=== PATIENT | female | born 1975 | race Caucasian/White ===

== ENCOUNTER 2025-04-06 13:23 | Inpatient (IN) ==
--- NOTE | 2025-04-06 13:50 | Emergency Department Note ---
Impression & Plan Acute neck pain, Globus sensation, Acute hyperglycemia, Diabetes mellitus, new onset, Difficulty in swallowing ED Provider Note NAME: ADAMA SAM AGE: 50 SEX: F : 1975 ARRIVES VIA: Walk-In INFORMANT: Patient, ED PROVIDER(S): Philip Self DO CHIEF COMPLAINT: Difficulty breathing HPI: The patient is a 50-year-old female who does have a history of breast cancer in the past who presented to the emergency department for an evaluation of difficulty breathing. The patient describes a sensation where she is being choked almost. She describes it as difficulty getting a deep breath then but also like a tightness around her neck. The patient denies having any leg swelling or leg pain. She states that this has been ongoing for 2 weeks. Initially it was felt to be secondary to a yeast infection. She has been on medications for this but states that it is not helping. The patient denies having any abdominal pain. ROS: See above HPI for pertinent positives & negatives. A total of 10 systems reviewed and were otherwise negative. PAST MEDICAL HISTORY: See Below PAST SURGICAL HISTORY: See below FAMILY HISTORY: See Below SOCIAL HISTORY: See Below HOME MEDICATIONS: See Below ALLERGIES: See Below VITALS: See Below PHYSICAL EXAMINATION: GENERAL: Patient is awake alert in no acute distress patient is resting comfortably and showing no signs of anxiety EYES: The conjunctivae are clear. The pupils are round and reactive. EARS, NOSE, MOUTH AND THROAT: The nose is without any evidence of any deformity. Mucous membranes are moist. Tongue is midline. NECK: The neck is nontender and supple. RESPIRATORY: Normal respiratory effort is noted there is no evidence of wheezing rhonchi or rales CARDIOVASCULAR: Regular rate and rhythm noted there no murmurs rubs or gallops normal S1 normal S2. GASTROINTESTINAL: The abdomen is soft. Abdomen is nontender. MUSCULOSKELETAL/EXTREMITIES: There is no evidence of gross deformity full range of motion is noted in the hips and shoulders. SKIN: There is no obvious evidence of any rash. There are no petechiae, pallor or cyanosis noted. NEUROLOGIC: Patient is awake alert and oriented x3 MEDICAL DECISION MAKING: The patient is a 50-year-old female who presented to the emergency department with multiple complaints. The patient has been having problems with a sensation of tightness around her neck. I am not sure if this represents some sort of anginal equivalent but her EKG shows no acute ST segment abnormalities and her cardiac biomarker is negative despite having ongoing symptoms. The patient was found to have an elevated blood sugar. She claims to have no history of diabetes. The patient was recently on a course of steroids. She has also been experiencing yeast infection. I would think this represents the patient becoming a type II diabetic. She was treated with IV fluids and IV insulin in the emergency department. The patient was reevaluated multiple times. On reevaluation the patient was somewhat improved but still having significant anxiety about her symptoms. I am not sure if the patient would be a good candidate for outpatient management at this time. For this reason I will discuss her condition with the on-call [facility]. Triage Nursing notes reviewed. Prior medical records reviewed Vital Signs: reviewed and remarkable for no significant abnormalities Differential diagnosis: Viral syndrome, tonsillitis, streptococcal pharyngitis, mononucleosis, peritonsillar abscess, retropharyngeal abscess, otitis, pneumonia, influenza, as well as other pathologies. ER treatment provided: See below Diagnostics interpreted by me: ECG: EKG was obtained in the emergency department. My interpretation is normal sinus rhythm at 97 bpm. There is no ectopy. There is no acute ST segment abnormalities noted. QTc was 436 ms. Cardiac Monitoring: An order was placed for continuous cardiac monitoring. The monitor shows a rate of 98 bpm with sinus rhythm. Laboratory studies: As stated above and show below. Imaging studies: See below. Radiographic imaging was reviewed by myself Consultation(s): I discussed this case with Susan who is on for the [facility] group. Past Med/Surg History Problem List (Updated 04/06/25 @ 16:28 by Philip Self DO) Difficulty in swallowing (Acute) Diabetes mellitus, new onset (Acute) Acute hyperglycemia (Acute) Globus sensation (Acute) Acute neck pain (Acute) Medical History Liver disease Breast cancer Social History Smoking Status: Never smoker Feels Safe at Home: Yes Allergies Allergies Allergy/AdvReac Type Severity Reaction Status Date / Time adalimumab [From Humira] Allergy Severe swelling Unverified 04/06/25 16:20 of throat Home Meds Home Medications Medication Instructions Recorded Confirmed carvedilol 3.125 mg tablet 3.125 mg PO DAILY 04/06/25 04/06/25 ergocalciferol (vitamin D2) 1,250 50,000 unit PO WK 04/06/25 04/06/25 mcg (50,000 unit) capsule fluconazole 100 mg tablet 100 mg PO UD 04/06/25 04/06/25 furosemide 40 mg tablet 60 mg PO DAILY 04/06/25 04/06/25 ixekizumab 80 mg/mL subcutaneous 80 mg subcut MONTHLY 04/06/25 04/06/25 auto-injector (Taltz Autoinjector) omeprazole 20 mg capsule,delayed 20 mg PO BID 04/06/25 04/06/25 release spironolactone 100 mg tablet 200 mg PO DAILY 04/06/25 04/06/25 Results & Data (ED) Vital Signs Vital Signs - 24 hr 04/06/25 13:29 04/06/25 14:28 04/06/25 15:23 Temperature 36.5 C Temperature Source Temporal Artery Scan Pulse Rate 103 H Pulse Rate [Apical] 95 H Pulse Rate from SpO2 Sensor Respiratory Rate 16 14 Respiratory Effort / Characteristics Non-Labored Spontaneous Non-Labored Respiratory Depth Normal Normal Respiratory Pattern Regular Blood Pressure 135/89 Blood Pressure [Right Arm] 126/90 Blood Pressure Mean 104 Blood Pressure Mean [Right Arm] 102 Pulse Oximetry 97 99 Oxygen Delivery Method Room Air Room Air Room Air Sepsis Recent Fever Within 48 Hours No Sepsis New/Unexplained Change in Mental Status No Sepsis Action Taken by Nursing No Action Required 04/06/25 15:42 04/06/25 16:00 04/06/25 16:12 Temperature Temperature Source Pulse Rate 96 H 100 H Pulse Rate [Apical] Pulse Rate from SpO2 Sensor 101 H Respiratory Rate 17 Respiratory Effort / Characteristics Respiratory Depth Respiratory Pattern Blood Pressure 135/99 Blood Pressure [Right Arm] Blood Pressure Mean 108 Blood Pressure Mean [Right Arm] Pulse Oximetry 97 Oxygen Delivery Method Room Air Sepsis Recent Fever Within 48 Hours Sepsis New/Unexplained Change in Mental Status Sepsis Action Taken by Intermediate Medications Current Medication List: was personally reviewed by me Laboratory Data Attestation: I reviewed the patient's lab results. 04/06/25 14:00 04/06/25 14:00 Lab Results 04/06/25 04/06/25 04/06/25 Range/Units 13:44 14:00 14:09 WBC 8.78 (4.8-10.8) K/ul RBC 4.89 (4.20-5.40) M/uL Hgb 14.8 (12.0-16.0) g/dl POC Hgb 16.7 H (12.0-16.0) g/dl Hct 43.5 (37.0-47.0) % POC Hct 49 H (37-47) % MCV 89.0 (80.0-100.0) fL MCH 30.3 (25.0-34.0) pg MCHC 34.0 (32.0-36.0) g/dL RDW Std Deviation 45.1 (36.4-46.3) fL RDW Coeff of Hollis 14.0 (11.5-14.5) % Plt Count 176 (130-400) K/uL MPV 10.5 (9.4-12.4) fL Immature Gran % (Auto) 1.0 % Neut % (Auto) 69.6 % Lymph % (Auto) 17.2 % Howard % (Auto) 10.5 % Eos % (Auto) 0.9 % Baso % (Auto) 0.8 % Neut # (Auto) 6.11 (1.40-6.50) K/uL Lymph # (Auto) 1.51 (1.20-3.40) K/uL Howard # (Auto) 0.92 H (0.11-0.59) K/uL Eos # (Auto) 0.08 (0.00-0.50) K/uL Baso # (Auto) 0.07 (0.00-0.20) K/uL Immature Gran # (Auto) 0.09 (0.01-0.20) K/uL PT 11.5 (9.0-12.0) Seconds INR 1.1 (0.9-1.1) APTT 28 (21-31) Seconds PTT Ratio 1.0 VBG pH (7.36-7.41) VBG pCO2 (38-50) mmHg VBG pO2 mmHg VBG HCO3 mmol/L VBG O2 Saturation % VBG Base Excess mEq/L POC Sodium 123 L (135-144) mmol/L Sodium 123 L (136-145) mmol/L POC Potassium 5.1 H (3.3-5.0) mmol/L Potassium 4.9 (3.5-5.1) mmol/L POC Chloride 90 L (101-112) mmol/L Chloride 88 L (98-107) mmol/L Carbon Dioxide 24 (21-32) mmol/L POC Total CO2 23 L (24-31) mmol/L Anion Gap 11 (3-11) POC Anion Gap 17.0 (16-25) mmol/L POC BUN 20 H (7-18) mg/dl BUN 21 (6-23) mg/dl Creatinine 1.38 H (0.6-1.2) mg/dl POC Creatinine 1.4 H (0.6-1.3) mg/dl Est Cr Clr Drug Dosing 67.2 ml/min eGFR 46.06 BUN/Creatinine Ratio 15.2 (10-20) Glucose 572 H* (70-99(Fasting)) mg/dl POC Glucose (other) 553 H* (70-99) mg/dl Estimat Average Glucose 272 mg/dl Hemoglobin A1c 11.1 H (4.5-5.6) % Osmolality 293 (280-300) mOsm/kg Calcium 9.5 (8.6-10.3) mg/dl POC Ioniz Calcium Alma Delia 1.14 (1.12-1.32) mmol/l Magnesium 2.2 (1.7-2.4) mg/dl Total Bilirubin 2.0 H (0.2-1.0) mg/dl AST 32 (13-39) U/L ALT 37 (7-52) U/L Alkaline Phosphatase 166 H (34-104) U/L Troponin I High Sens 5.2 (0-14) pg/ml Total Protein 8.2 (6.0-8.3) gm/dl Albumin 4.6 (3.4-5.0) gm/dl Globulin 3.6 (2.5-4.0) gm/dl Albumin/Globulin Ratio 1.3 (0.9-2) TSH 1.683 (0.300-4.500) uIu/ml Urine Color Urine Appearance (Clear) Urine pH (4.5-7.5) Ur Specific [place] (1.000-1.030) Urine Protein (Negative) Urine Glucose (UA) (Negative) Urine Ketones (Negative) Urine Blood (Negative) Urine Nitrite (Negative) Urine Bilirubin (Negative) Urine Urobilinogen (Negative) Ur Leukocyte Esterase (Negative) Urine WBC (Auto) (0-5) /hpf Urine RBC (Auto) (0-2) /hpf U Hyaline Cast (Auto) (0-2) /lpf U Epithel Cells (Auto) (0-2) /hpf Urine Bacteria (Auto) (None Seen) Urine Osmolality (500-800) mOsm/kg Ur Random Sodium mmol/L Urine Comment SARS-CoV-2 (PCR) (Negative) Influenza Type A (PCR) (Neg) Influenza Type B (PCR) (Neg) RSV (RT-PCR) (Neg) 04/06/25 04/06/25 04/06/25 Range/Units 14:35 15:05 15:20 WBC (4.8-10.8) K/ul RBC (4.20-5.40) M/uL Hgb (12.0-16.0) g/dl POC Hgb (12.0-16.0) g/dl Hct (37.0-47.0) % POC Hct (37-47) % MCV (80.0-100.0) fL MCH (25.0-34.0) pg MCHC (32.0-36.0) g/dL RDW Std Deviation (36.4-46.3) fL RDW Coeff of Hollis (11.5-14.5) % Plt Count (130-400) K/uL MPV (9.4-12.4) fL Immature Gran % (Auto) % Neut % (Auto) % Lymph % (Auto) % Howard % (Auto) % Eos % (Auto) % Baso % (Auto) % Neut # (Auto) (1.40-6.50) K/uL Lymph # (Auto) (1.20-3.40) K/uL Howard # (Auto) (0.11-0.59) K/uL Eos # (Auto) (0.00-0.50) K/uL Baso # (Auto) (0.00-0.20) K/uL Immature Gran # (Auto) (0.01-0.20) K/uL PT (9.0-12.0) Seconds INR (0.9-1.1) APTT (21-31) Seconds PTT Ratio VBG pH 7.40 (7.36-7.41) VBG pCO2 46 (38-50) mmHg VBG pO2 40 mmHg VBG HCO3 29 mmol/L VBG O2 Saturation 61.9 % VBG Base Excess 3.0 mEq/L POC Sodium (135-144) mmol/L Sodium (136-145) mmol/L POC Potassium (3.3-5.0) mmol/L Potassium (3.5-5.1) mmol/L POC Chloride (101-112) mmol/L Chloride (98-107) mmol/L Carbon Dioxide (21-32) mmol/L POC Total CO2 (24-31) mmol/L Anion Gap (3-11) POC Anion Gap (16-25) mmol/L POC BUN (7-18) mg/dl BUN (6-23) mg/dl Creatinine (0.6-1.2) mg/dl POC Creatinine (0.6-1.3) mg/dl Est Cr Clr Drug Dosing ml/min eGFR BUN/Creatinine Ratio (10-20) Glucose (70-99(Fasting)) mg/dl POC Glucose (other) (70-99) mg/dl Estimat Average Glucose mg/dl Hemoglobin A1c (4.5-5.6) % Osmolality (280-300) mOsm/kg Calcium (8.6-10.3) mg/dl POC Ioniz Calcium Alma Delia (1.12-1.32) mmol/l Magnesium (1.7-2.4) mg/dl Total Bilirubin (0.2-1.0) mg/dl AST (13-39) U/L ALT (7-52) U/L Alkaline Phosphatase (34-104) U/L Troponin I High Sens (0-14) pg/ml Total Protein (6.0-8.3) gm/dl Albumin (3.4-5.0) gm/dl Globulin (2.5-4.0) gm/dl Albumin/Globulin Ratio (0.9-2) TSH (0.300-4.500) uIu/ml Urine Color Yellow Urine Appearance Clear (Clear) Urine pH 6.5 (4.5-7.5) Ur Specific [place] > 1.045 H (1.000-1.030) Urine Protein Negative (Negative) Urine Glucose (UA) 3+ H (Negative) Urine Ketones Negative (Negative) Urine Blood Trace H (Negative) Urine Nitrite Negative (Negative) Urine Bilirubin Negative (Negative) Urine Urobilinogen Negative (Negative) Ur Leukocyte Esterase Trace H (Negative) Urine WBC (Auto) 11-20 H (0-5) /hpf Urine RBC (Auto) 0-2 (0-2) /hpf U Hyaline Cast (Auto) 0-2 (0-2) /lpf U Epithel Cells (Auto) 3-5 H (0-2) /hpf Urine Bacteria (Auto) 1+ H (None Seen) Urine Osmolality 567 (500-800) mOsm/kg Ur Random Sodium 34 mmol/L Urine Comment SARS-CoV-2 (PCR) NEGATIVE (Negative) Influenza Type A (PCR) Negative (Neg) Influenza Type B (PCR) Negative (Neg) RSV (RT-PCR) Negative (Neg) Administered Medications Discontinued Medications Al Hydrox/Mg Hydrox/Simethicone (Aluminum/Magnesium Susp 30 Ml Udc) 30 ml PO NOW STA Stop: 04/06/25 13:45 Last Admin: 04/06/25 15:18 Dose: Not Given Documented By: ANUSHKA Sodium Chloride (Nss) 1,000 mls @ 999 mls/hr IV .Q1H1M ONE Stop: 04/06/25 15:14 Last Admin: 04/06/25 15:17 Dose: 999 mls/hr Documented By: ANUSHKA Insulin Human Regular (Novolin-R Insulin Per Unit Charge) 8 units IV NOW STA Stop: 04/06/25 15:19 Last Admin: 04/06/25 15:36 Dose: 8 units Documented By: MIRNA Co-signed By: nia Ioversol (Optiray 320 125ml) 112 ml IV ONCE ONE Stop: 04/06/25 14:23 Last Admin: 04/06/25 14:23 Dose: 112 ml Documented By: BIANCA Imaging Data Attestation: I personally reviewed and interpreted this imaging study as follows: My Impression: CT of the chest was obtained in the emergency department. My interpretation is no free air or definite infiltrate, final close low. Radiologist's Impression: Chest CTA 04/06/25 13:44 EXAM: CT Angiography Chest With Intravenous Contrast INDICATION: Lump in throat. Dyspnea. Vomiting. TECHNIQUE: Axial computed tomographic angiography images of the chest with intravenous contrast. Sagittal and coronal reformatted images were created and reviewed. This CT exam was performed using one or more of the following dose reduction techniques: automated exposure control, adjustment of the mA and/or kV according to patient size, and/or use of iterative reconstruction technique. MIP reconstructed images were created and reviewed. CONTRAST: 112 ml of Optiray 320 was administered intravenously. COMPARISON: No relevant prior studies available. FINDINGS: Pulmonary arteries: Pression no pulmonary embolus or aortic abnormality. Aorta: See above. Lungs and pleural spaces: No abnormality noted. No mass. No consolidation. No significant effusion. No pneumothorax. Heart: No abnormality noted. No cardiomegaly. No significant pericardial effusion. No evidence of RV dysfunction. Bones/joints: Degenerative changes noted throughout the spine. No acute osseous abnormality seen. Soft tissues: No abnormality noted. Lymph nodes: No abnormality noted. No enlarged lymph nodes. Liver: Visualized portion of the liver is cirrhotic. The spleen is probably enlarged but not completely imaged. The pancreas is not assessed. IMPRESSION: 1. No pulmonary embolus or pulmonary infiltrate. 2. Cirrhosis and probable splenomegaly. The pancreas is not evaluated and may be seen partially related to volume averaging on the lowermost image. ACT 112: N/A Electronically signed by Nevaeh Aponte 04-06-2025 2:51 PM [address] Tissue Neck [address] 04/06/25 13:44 EXAM: CT Neck With Intravenous Contrast INDICATION: Lump in throat. Vomiting. TECHNIQUE: Axial computed tomography images of the neck with intravenous contrast. Sagittal and coronal reformatted images were created and reviewed. This CT exam was performed using one or more of the following dose reduction techniques: automated exposure control, adjustment of the mA and/or kV according to patient size, and/or use of iterative reconstruction technique. CONTRAST: 112 ml of Optiray 320 was administered intravenously. COMPARISON: No relevant prior studies available. FINDINGS: Oropharynx: No abnormality noted. No significant tonsillar enlargement. No peritonsillar abscess. Hypopharynx: No abnormality noted. Larynx: No abnormality noted. Normal epiglottis. Trachea: No abnormality noted. Retropharyngeal space: No abnormality noted. Submandibular/parotid glands: No abnormality noted. Glands are normal in size. Thyroid: No abnormality noted. Bones/joints: No acute changes. Soft tissues: No significant abnormality noted. Vasculature: No acute abnormality noted. Lymph nodes: No abnormality noted. No lymphadenopathy. Sinuses: Minimal chronic mucosal thickening floor of the right maxillary sinus. Lung apices: No significant abnormality noted. IMPRESSION: No acute findings in the neck. ACT 112: N/A Electronically signed by Nevaeh Aponte 04-06-2025 3:15 PM Discharge Plan Visit Data Chief Complaint: Shortness of Breath/Dyspnea Stated Complaint: VOMITING, THROAT RESTRICTION, SOB ED Provider: Philip Self Discharge Problem: Acute neck pain, Globus sensation, Acute hyperglycemia, Diabetes mellitus, new onset, Difficulty in swallowing Patient Disposition: Being Evaluated by Hospitalist Condition: Fair Forms Stand Alone Forms: My [facility] Prescriptions Prescriptions: No Action furosemide 40 mg tablet 60 mg PO DAILY fluconazole 100 mg tablet 100 mg PO UD spironolactone 100 mg tablet 200 mg PO DAILY carvedilol 3.125 mg tablet 3.125 mg PO DAILY omeprazole 20 mg capsule,delayed release(DR/EC) 20 mg PO BID ergocalciferol (vitamin D2) 1,250 mcg (50,000 unit) capsule 50,000 unit PO WK Taltz Autoinjector 80 mg/mL auto-injector 80 mg SUBCUT MONTHLY Referrals Referrals: PCP,NO [Primary Care Provider] -
[2025-04-06 14:21] LABS: Hematocrit (blood only) 43.5 % (37.0-47.0); Hemoglobin 14.8 g/dl (12.0-16.0); Immature Granulocytes # (auto) 0.09 K/uL (0.01-0.20); Immature Granulocytes % (auto) 1.0 %; Mean Corpuscular Hemoglobin 30.3 pg (25.0-34.0); Mean Corpuscular Volume 89.0 fL (80.0-100.0); Platelet Count 176 K/uL (130-400); RDW Standard Deviation 45.1 fL (36.4-46.3); Red Blood Count 4.89 M/uL (4.20-5.40); White Blood Count 8.78 K/ul (4.8-10.8)
[2025-04-06] MEDS: OPTIRAY 320 125ml IV ONE (14:23)
[2025-04-06 14:49] LABS: Alanine Aminotransferase 37.0 U/L (7-52); Albumin Globulin Ratio 1.3 (0.9-2); Albumin Level 4.6 gm/dl (3.4-5.0); Alkaline Phosphatase 166.0 U/L (34-104); Anion Gap 11.0 (3-11); Bilirubin,Total 2.0 mg/dl (0.2-1.0); Blood Urea Nitrogen 21.0 mg/dl (6-23); Calcium 9.5 mg/dl (8.6-10.3); Carbon Dioxide 24.0 mmol/L (21-32); Chloride 88.0 mmol/L (98-107); Creatinine Clr Calc Pharmacy 67.2 ml/min; Globulin 3.6 gm/dl (2.5-4.0); Glucose 572.0 mg/dl (70-99(Fasting)); Magnesium 2.2 mg/dl (1.7-2.4); Potassium 4.9 mmol/L (3.5-5.1); Sodium 123.0 mmol/L (136-145); Total Protein 8.2 gm/dl (6.0-8.3)
--- NOTE | 2025-04-06 14:52 | CT Scan Report ---
EXAM: CT Angiography Chest With Intravenous Contrast INDICATION: Lump in throat. Dyspnea. Vomiting. TECHNIQUE: Axial computed tomographic angiography images of the chest with intravenous contrast. Sagittal and coronal reformatted images were created and reviewed. This CT exam was performed using one or more of the following dose reduction techniques: automated exposure control, adjustment of the mA and/or kV according to patient size, and/or use of iterative reconstruction technique. MIP reconstructed images were created and reviewed. CONTRAST: 112 ml of Optiray 320 was administered intravenously. COMPARISON: No relevant prior studies available. FINDINGS: Pulmonary arteries: Pression no pulmonary embolus or aortic abnormality. Aorta: See above. Lungs and pleural spaces: No abnormality noted. No mass. No consolidation. No significant effusion. No pneumothorax. Heart: No abnormality noted. No cardiomegaly. No significant pericardial effusion. No evidence of RV dysfunction. Bones/joints: Degenerative changes noted throughout the spine. No acute osseous abnormality seen. Soft tissues: No abnormality noted. Lymph nodes: No abnormality noted. No enlarged lymph nodes. Liver: Visualized portion of the liver is cirrhotic. The spleen is probably enlarged but not completely imaged. The pancreas is not assessed. IMPRESSION: 1. No pulmonary embolus or pulmonary infiltrate. 2. Cirrhosis and probable splenomegaly. The pancreas is not evaluated and may be seen partially related to volume averaging on the lowermost image. ACT 112: N/A Electronically signed by Nevaeh Aponte 04-06-2025 2:51 PM
[2025-04-06 15:00] LABS: Thyroid Stimulating Hormone 1.683 uIu/ml (0.300-4.500)
[2025-04-06 15:10] LABS: Base Excess VBG 3.0 mEq/L; HCO3 VBG 29 mmol/L; Oxygen Saturation VBG 61.9 %; PCO2 VBG 46 mmHg (38-50); PO2 VBG 40 mmHg; pH VBG 7.40 (7.36-7.41)
--- NOTE | 2025-04-06 15:15 | CT Scan Report ---
EXAM: CT Neck With Intravenous Contrast INDICATION: Lump in throat. Vomiting. TECHNIQUE: Axial computed tomography images of the neck with intravenous contrast. Sagittal and coronal reformatted images were created and reviewed. This CT exam was performed using one or more of the following dose reduction techniques: automated exposure control, adjustment of the mA and/or kV according to patient size, and/or use of iterative reconstruction technique. CONTRAST: 112 ml of Optiray 320 was administered intravenously. COMPARISON: No relevant prior studies available. FINDINGS: Oropharynx: No abnormality noted. No significant tonsillar enlargement. No peritonsillar abscess. Hypopharynx: No abnormality noted. Larynx: No abnormality noted. Normal epiglottis. Trachea: No abnormality noted. Retropharyngeal space: No abnormality noted. Submandibular/parotid glands: No abnormality noted. Glands are normal in size. Thyroid: No abnormality noted. Bones/joints: No acute changes. Soft tissues: No significant abnormality noted. Vasculature: No acute abnormality noted. Lymph nodes: No abnormality noted. No lymphadenopathy. Sinuses: Minimal chronic mucosal thickening floor of the right maxillary sinus. Lung apices: No significant abnormality noted. IMPRESSION: No acute findings in the neck. ACT 112: N/A Electronically signed by Nevaeh Aponte 04-06-2025 3:15 PM
[2025-04-06] MEDS: SODIUM CHLORIDE 0.9% 1,000 ML IV ONE (15:17)
[2025-04-06] MEDS: ALUMINUM/MAGNESIUM SUSP 30 ML UDC PO STA (15:18)
[2025-04-06 15:20] LABS: Influenza A virus by PCR Negative (Neg); Influenza B virus by PCR Negative (Neg); SARS CoV2 RNA(COVID-19) Ceph NEGATIVE (Negative)
[2025-04-06 15:31] LABS: INR 1.1 (0.9-1.1); Partial Thromboplastin Time 28 Seconds (21-31); Prothrombin Time 11.5 Seconds (9.0-12.0)
[2025-04-06] MEDS: NovoLIN-R INSULIN PER UNIT CHARGE IV STA (15:36)
[2025-04-06 15:41] LABS: Appearance Urine Clear (Clear); Bacteria Urine Automated 1+ (None Seen); Cast Urine Automated 0-2 /lpf (0-2); Glucose Urine UA 3+ (Negative); RBC Urine Automated 0-2 /hpf (0-2)
[2025-04-06 15:57] LABS: Hemoglobin A1C 11.1 % (4.5-5.6)
--- NOTE | 2025-04-06 16:56 | History & Physical Report ---
Date of Service April 06, 2025 Assessment & Plan (1) Diabetes mellitus, new onset: (2) Choking sensation: (3) Obstructive sleep apnea: (4) Rheumatoid arthritis: (5) Cirrhosis: Plan This is a 50 y/o female with cirrhosis with known esophageal varices, prior breast cancer, IRMA, rheumatoid arthritis, psoriatic arthritis, and empty sella syndrome who presents to the ED today with two weeks of a choking sensation. She was started on empiric fluconazole for possible latoya esophagitis yesterday. Work-up in the ED included CT of the chest and neck, which did not show any mechanical obstruction. Labs in the ED were significant for a glucose of 572, A1c of 11.1, sodium of 123 (corrected due to hyperglycemia - 131), creatinine 1.38 (unknown baseline). VBG was normal with pH 7.40, pCO2 46, pO2 40. INR normal at 1.1. Platelets were 176. Total bilirubin slightly elevated at 2.0, alk phos elevated at 166, AST and ALT were normal at 32 and 37. Pt was referred for admission due to newly diagnosed diabetes, persistent choking sensation without clear etiology. Pt will be admitted to [facility] for further evaluation and management. #New diagnosis of diabetes - A1c 11.1 - BSG ACHS, diabetic diet - Start insulin - Lantus 10 units HS, sliding scale - Consult clinical systems educator #Choking sensation Unclear etiology at present but Latoya esophagitis is possible, especially in view of recent prednisone and underlying undiagnosed diabetes with marked hyperglycemia. Imaging negative for mechanical obstruction on CT. - Consult ENT for possible direct laryngoscopy - Consult GI for additional recommendations - ?need for EGD - Continue empiric fluconazole for possible Latoya esophagitis - Repeat troponin in six hours to establish trend though cardiac etiology thought less likely based on duration of symptoms, initial troponin normal, no acute EKG changes - ECHO #Cirrhosis - Chronic, follows with hepatology in [place] - Continue furosemide/spironolactone - Continue carvedilol recently started for varices #GERD - Continue BID PPI therapy Of note, pt expressed in triage in the ED that she wanted to go to sleep and not wake up because of how poorly she has been feeling. When asked about these statements, she denies being suicidal or having a plan. She reports that she was just frustrated with her health and how she has been feeling. She denies current depression or history of MDD. Will consult behavioral health liason per protocol but pt adamant at present that she is not suicidal. Pt seen and reviewed with collaborating physician Dr. Bustillo. Plan of care discussed and as outlined above. Pt's was at the bedside for the entire visit. All of his and the patient's questions were answerd. Code status: full code DVT prophylaxis: subQ heparin I spent a total of 78 minutes coordinating, documenting, and providing care for this patient excluding time spent in the performance of separately billed services or time spent by another provider/QHP. Juancarlos Campbell PA-C History of Present Illness Chief Complaint: choking sensation Primary Care Provider: NO PCP This is a 50 y/o female with cirrhosis with known esophageal varices, prior breast cancer, IRMA, rheumatoid arthritis, psoriatic arthritis, and empty sella syndrome who presents to the ED today with two weeks of a choking sensation. She describes this like "someone's hand on my neck" and notes an associated metallic taste in her mouth. She denies significant dysphagia or odynophagia and reports that she has been able to eat without difficulty. She has been spitting up saliva and mucus during this same time because she feels like it's making her nauseated but again denies difficulty with swallowing her saliva. She also noted several days of vaginal irritation that she describes as "felt raw, burning sensation" but no unusual vaginal discharge. She called her PCP who prescribed her fluconazole 200 mg daily starting yesterday due to concern for potential vaginal and esophageal candidiasis based on her symptoms. She took three 100 mg pills of fluconazole yesterday to try to "catch up" but notes that this caused nausea so didn't take today. Her vaginal irritation has already improved but hasn't noted any change in the choking sensation. She has noted chills and night sweats, has not checked her temperature, but notes she is menopausal. Her bowel pattern is alternating diarrhea and constipation - was supposed to get a scope in June but told to avoid sedation if possible so hasn't had this. She denies melena or hematochezia. She denies changes in urination - no dysuria, hematuria. She notes taking prednisone for several days earlier this month for a back injury, finishing about 2-3 weeks ago. She has a history of cirrhosis with recently diagnosed esophageal varices, which is why she was started on Coreg. She follows with a rug repairer in [place]. She notes recurrent pleural effusions as well, requiring five thoracentesis procedures in the past, that have also been attributed to the cirrhosis. Her home health travel ot is also in [place]. She denies hx of prior AR, stroke. Denies prior diagnosis of DM. She has a known sleep apnea but had trouble tolerating the CPAP (can't tolerate the mask). Allergies Allergy/AdvReac Type Severity Reaction Status Date / Time adalimumab [From Humira] Allergy Severe swelling Unverified 04/06/25 16:20 of throat Home Medications Medication Instructions Recorded Confirmed Type carvedilol 3.125 mg tablet 3.125 mg PO DAILY 04/06/25 04/06/25 History ergocalciferol (vitamin D2) 1,250 50,000 unit PO WK 04/06/25 04/06/25 History mcg (50,000 unit) capsule fluconazole 100 mg tablet 100 mg PO UD 04/06/25 04/06/25 History furosemide 40 mg tablet 60 mg PO DAILY 04/06/25 04/06/25 History ixekizumab 80 mg/mL subcutaneous 80 mg subcut MONTHLY 04/06/25 04/06/25 History auto-injector (Taltz Autoinjector) omeprazole 20 mg capsule,delayed 20 mg PO BID 04/06/25 04/06/25 History release spironolactone 100 mg tablet 200 mg PO DAILY 04/06/25 04/06/25 History Past Med/Surg History Problem List (Updated 04/06/25 @ 20:23 by Winifred Campbell PA-C) Choking sensation Difficulty in swallowing (Acute) Diabetes mellitus, new onset (Acute) Acute hyperglycemia (Acute) Globus sensation (Acute) Acute neck pain (Acute) Medical History (Updated 04/06/25 @ 20:23 by Winifred Campbell PA-C) Cirrhosis Obstructive sleep apnea Recurrent pleural effusion Psoriatic arthritis Rheumatoid arthritis Acid reflux Liver disease Breast cancer chemo, XRT No longer on tamoxifen Surgical History (Updated 04/06/25 @ 17:25 by Winifred Campbell PA-C) S/P thoracentesis History of hernia repair S/P cholecystectomy Hx of breast surgery History of dilatation and curettage x2 Family History (Updated 04/06/25 @ 17:24 by Winifred Campbell PA-C) Grandmother Diabetes Denies family history of Liver disease Social History (Updated 04/06/25 @ 17:23 by Winifred Campbell PA-C) Smoking Status: Never smoker Hx Alcohol Use: No marital status: Current Living Situation: Spouse Feels Safe at Home: Yes Review of Systems Review of Systems: All systems reviewed & are unremarkable except as noted in Subjective Physical Exam Physical Exam: Please see physician note for details of the physical exam. Results & Data Results & Data Vital Signs (Past 12 Hours) Vital Signs Temp Pulse Pulse Resp BP BP Pulse Ox 04/06/25 16:39 98 H 23 98 04/06/25 16:30 152/111 H 04/06/25 16:12 100 H 17 97 04/06/25 16:00 135/99 04/06/25 15:42 96 H 04/06/25 15:23 95 H 14 126/90 99 04/06/25 14:28 04/06/25 13:29 36.5 C 103 H 16 135/89 97 O2 Del Method 04/06/25 16:39 Room Air 04/06/25 16:30 04/06/25 16:12 Room Air 04/06/25 16:00 04/06/25 15:42 04/06/25 15:23 Room Air 04/06/25 14:28 Room Air 04/06/25 13:29 Room Air Laboratory Results Lab Results 04/06/25 04/06/25 04/06/25 Range/Units 13:44 14:00 14:09 WBC 8.78 (4.8-10.8) K/ul RBC 4.89 (4.20-5.40) M/uL Hgb 14.8 (12.0-16.0) g/dl POC Hgb 16.7 H (12.0-16.0) g/dl Hct 43.5 (37.0-47.0) % POC Hct 49 H (37-47) % MCV 89.0 (80.0-100.0) fL MCH 30.3 (25.0-34.0) pg MCHC 34.0 (32.0-36.0) g/dL RDW Std Deviation 45.1 (36.4-46.3) fL RDW Coeff of Hollis 14.0 (11.5-14.5) % Plt Count 176 (130-400) K/uL MPV 10.5 (9.4-12.4) fL Immature Gran % (Auto) 1.0 % Neut % (Auto) 69.6 % Lymph % (Auto) 17.2 % Faulkner % (Auto) 10.5 % Eos % (Auto) 0.9 % Baso % (Auto) 0.8 % Neut # (Auto) 6.11 (1.40-6.50) K/uL Lymph # (Auto) 1.51 (1.20-3.40) K/uL Faulkner # (Auto) 0.92 H (0.11-0.59) K/uL Eos # (Auto) 0.08 (0.00-0.50) K/uL Baso # (Auto) 0.07 (0.00-0.20) K/uL Immature Gran # (Auto) 0.09 (0.01-0.20) K/uL PT 11.5 (9.0-12.0) Seconds INR 1.1 (0.9-1.1) APTT 28 (21-31) Seconds PTT Ratio 1.0 VBG pH (7.36-7.41) VBG pCO2 (38-50) mmHg VBG pO2 mmHg VBG HCO3 mmol/L VBG O2 Saturation % VBG Base Excess mEq/L POC Sodium 123 L (135-144) mmol/L Sodium 123 L (136-145) mmol/L POC Potassium 5.1 H (3.3-5.0) mmol/L Potassium 4.9 (3.5-5.1) mmol/L POC Chloride 90 L (101-112) mmol/L Chloride 88 L (98-107) mmol/L Carbon Dioxide 24 (21-32) mmol/L POC Total CO2 23 L (24-31) mmol/L Anion Gap 11 (3-11) POC Anion Gap 17.0 (16-25) mmol/L POC BUN 20 H (7-18) mg/dl BUN 21 (6-23) mg/dl Creatinine 1.38 H (0.6-1.2) mg/dl POC Creatinine 1.4 H (0.6-1.3) mg/dl Est Cr Clr Drug Dosing 67.2 ml/min eGFR 46.06 BUN/Creatinine Ratio 15.2 (10-20) Glucose 572 H* (70-99(Fasting)) mg/dl POC Glucose (70-99) mg/dl POC Glucose (other) 553 H* (70-99) mg/dl Estimat Average Glucose 272 mg/dl Hemoglobin A1c 11.1 H (4.5-5.6) % Osmolality 293 (280-300) mOsm/kg Calcium 9.5 (8.6-10.3) mg/dl POC Ioniz Calcium Alma Delia 1.14 (1.12-1.32) mmol/l Magnesium 2.2 (1.7-2.4) mg/dl Total Bilirubin 2.0 H (0.2-1.0) mg/dl AST 32 (13-39) U/L ALT 37 (7-52) U/L Alkaline Phosphatase 166 H (34-104) U/L Troponin I High Sens 5.2 (0-14) pg/ml Total Protein 8.2 (6.0-8.3) gm/dl Albumin 4.6 (3.4-5.0) gm/dl Globulin 3.6 (2.5-4.0) gm/dl Albumin/Globulin Ratio 1.3 (0.9-2) TSH 1.683 (0.300-4.500) uIu/ml Urine Color Urine Appearance (Clear) Urine pH (4.5-7.5) Ur Specific [place] (1.000-1.030) Urine Protein (Negative) Urine Glucose (UA) (Negative) Urine Ketones (Negative) Urine Blood (Negative) Urine Nitrite (Negative) Urine Bilirubin (Negative) Urine Urobilinogen (Negative) Ur Leukocyte Esterase (Negative) Urine WBC (Auto) (0-5) /hpf Urine RBC (Auto) (0-2) /hpf U Hyaline Cast (Auto) (0-2) /lpf U Epithel Cells (Auto) (0-2) /hpf Urine Bacteria (Auto) (None Seen) Urine Osmolality (500-800) mOsm/kg Ur Random Sodium mmol/L Urine Comment SARS-CoV-2 (PCR) (Negative) Influenza Type A (PCR) (Neg) Influenza Type B (PCR) (Neg) RSV (RT-PCR) (Neg) 04/06/25 04/06/25 04/06/25 Range/Units 14:35 15:05 15:20 WBC (4.8-10.8) K/ul RBC (4.20-5.40) M/uL Hgb (12.0-16.0) g/dl POC Hgb (12.0-16.0) g/dl Hct (37.0-47.0) % POC Hct (37-47) % MCV (80.0-100.0) fL MCH (25.0-34.0) pg MCHC (32.0-36.0) g/dL RDW Std Deviation (36.4-46.3) fL RDW Coeff of Hollis (11.5-14.5) % Plt Count (130-400) K/uL MPV (9.4-12.4) fL Immature Gran % (Auto) % Neut % (Auto) % Lymph % (Auto) % Faulkner % (Auto) % Eos % (Auto) % Baso % (Auto) % Neut # (Auto) (1.40-6.50) K/uL Lymph # (Auto) (1.20-3.40) K/uL Fa[place]ner # (Auto) (0.11-0.59) K/uL Eos # (Auto) (0.00-0.50) K/uL Baso # (Auto) (0.00-0.20) K/uL Immature Gran # (Auto) (0.01-0.20) K/uL PT (9.0-12.0) Seconds INR (0.9-1.1) APTT (21-31) Seconds PTT Ratio VBG pH 7.40 (7.36-7.41) VBG pCO2 46 (38-50) mmHg VBG pO2 40 mmHg VBG HCO3 29 mmol/L VBG O2 Saturation 61.9 % VBG Base Excess 3.0 mEq/L POC Sodium (135-144) mmol/L Sodium (136-145) mmol/L POC Potassium (3.3-5.0) mmol/L Potassium (3.5-5.1) mmol/L POC Chloride (101-112) mmol/L Chloride (98-107) mmol/L Carbon Dioxide (21-32) mmol/L POC Total CO2 (24-31) mmol/L Anion Gap (3-11) POC Anion Gap (16-25) mmol/L POC BUN (7-18) mg/dl BUN (6-23) mg/dl Creatinine (0.6-1.2) mg/dl POC Creatinine (0.6-1.3) mg/dl Est Cr Clr Drug Dosing ml/min eGFR BUN/Creatinine Ratio (10-20) Glucose (70-99(Fasting)) mg/dl POC Glucose (70-99) mg/dl POC Glucose (other) (70-99) mg/dl Estimat Average Glucose mg/dl Hemoglobin A1c (4.5-5.6) % Osmolality (280-300) mOsm/kg Calcium (8.6-10.3) mg/dl POC Ioniz Calcium [place] Delia (1.12-1.32) mmol/l Magnesium (1.7-2.4) mg/dl Total Bilirubin (0.2-1.0) mg/dl AST (13-39) U/L ALT (7-52) U/L Alkaline Phosphatase (34-104) U/L Troponin I High Sens (0-14) pg/ml Total Protein (6.0-8.3) gm/dl Albumin (3.4-5.0) gm/dl Globulin (2.5-4.0) gm/dl Albumin/Globulin Ratio (0.9-2) TSH (0.300-4.500) uIu/ml Urine Color Yellow Urine Appearance Clear (Clear) Urine pH 6.5 (4.5-7.5) Ur Specific [place] > 1.045 H (1.000-1.030) Urine Protein Negative (Negative) Urine Glucose (UA) 3+ H (Negative) Urine Ketones Negative (Negative) Urine Blood Trace H (Negative) Urine Nitrite Negative (Negative) Urine Bilirubin Negative (Negative) Urine Urobilinogen Negative (Negative) Ur Leukocyte Esterase Trace H (Negative) Urine WBC (Auto) 11-20 H (0-5) /hpf Urine RBC (Auto) 0-2 (0-2) /hpf U Hyaline Cast (Auto) 0-2 (0-2) /lpf U Epithel Cells (Auto) 3-5 H (0-2) /hpf Urine Bacteria (Auto) 1+ H (None Seen) Urine Osmolality 567 (500-800) mOsm/kg Ur Random Sodium 34 mmol/L Urine Comment SARS-CoV-2 (PCR) NEGATIVE (Negative) Influenza Type A (PCR) Negative (Neg) Influenza Type B (PCR) Negative (Neg) RSV (RT-PCR) Negative (Neg) 04/06/25 Range/Units 16:36 WBC (4.8-10.8) K/ul RBC (4.20-5.40) M/uL Hgb (12.0-16.0) g/dl POC Hgb (12.0-16.0) g/dl Hct (37.0-47.0) % POC Hct (37-47) % MCV (80.0-100.0) fL MCH (25.0-34.0) pg MCHC (32.0-36.0) g/dL RDW Std Deviation (36.4-46.3) fL RDW Coeff of Hollis (11.5-14.5) % Plt Count (130-400) K/uL MPV (9.4-12.4) fL Immature Gran % (Auto) % Neut % (Auto) % Lymph % (Auto) % [place] % (Auto) % Eos % (Auto) % Baso % (Auto) % Neut # (Auto) (1.40-6.50) K/uL Lymph # (Auto) (1.20-3.40) K/uL [place] # (Auto) (0.11-0.59) K/uL Eos # (Auto) (0.00-0.50) K/uL Baso # (Auto) (0.00-0.20) K/uL Immature Gran # (Auto) (0.01-0.20) K/uL PT (9.0-12.0) Seconds INR (0.9-1.1) APTT (21-31) Seconds PTT Ratio VBG pH (7.36-7.41) VBG pCO2 (38-50) mmHg VBG pO2 mmHg VBG HCO3 mmol/L VBG O2 Saturation % VBG Base Excess mEq/L POC Sodium (135-144) mmol/L Sodium (136-145) mmol/L POC Potassium (3.3-5.0) mmol/L Potassium (3.5-5.1) mmol/L POC Chloride (101-112) mmol/L Chloride (98-107) mmol/L Carbon Dioxide (21-32) mmol/L POC Total CO2 (24-31) mmol/L Anion Gap (3-11) POC Anion Gap (16-25) mmol/L POC BUN (7-18) mg/dl BUN (6-23) mg/dl Creatinine (0.6-1.2) mg/dl POC Creatinine (0.6-1.3) mg/dl Est Cr Clr Drug Dosing ml/min eGFR BUN/Creatinine Ratio (10-20) Glucose (70-99(Fasting)) mg/dl POC Glucose 423 H* (70-99) mg/dl POC Glucose (other) (70-99) mg/dl Estimat Average Glucose mg/dl Hemoglobin A1c (4.5-5.6) % Osmolality (280-300) mOsm/kg Calcium (8.6-10.3) mg/dl POC Ioniz Calcium [place] Del[place] (1.12-1.32) mmol/l Magnesium (1.7-2.4) mg/dl Total Bilirubin (0.2-1.0) mg/dl AST (13-39) U/L ALT (7-52) U/L Alkaline Phosphatase (34-104) U/L Troponin I High Sens (0-14) pg/ml Total Protein (6.0-8.3) gm/dl Albumin (3.4-5.0) gm/dl Globulin (2.5-4.0) gm/dl Albumin/Globulin Ratio (0.9-2) TSH (0.300-4.500) uIu/ml Urine Color Urine Appearance (Clear) Urine pH (4.5-7.5) Ur Specific [place] (1.000-1.030) Urine Protein (Negative) Urine Glucose (UA) (Negative) Urine Ketones (Negative) Urine Blood (Negative) Urine Nitrite (Negative) Urine Bilirubin (Negative) Urine Urobilinogen (Negative) Ur Leukocyte Esterase (Negative) Urine WBC (Auto) (0-5) /hpf Urine RBC (Auto) (0-2) /hpf U Hyaline Cast (Auto) (0-2) /lpf U Epithel Cells (Auto) (0-2) /hpf Urine Bacteria (Auto) (None Seen) Urine Osmolality (500-800) mOsm/kg Ur Random Sodium mmol/L Urine Comment SARS-CoV-2 (PCR) (Negative) Influenza Type A (PCR) (Neg) Influenza Type B (PCR) (Neg) RSV (RT-PCR) (Neg) Diagnostic Findings Chest CTA 04/06/25 13:44 EXAM: CT Angiography Chest With Intravenous Contrast INDICATION: Lump in throat. Dyspnea. Vomiting. TECHNIQUE: Axial computed tomographic angiography images of the chest with intravenous contrast. Sagittal and coronal reformatted images were created and reviewed. This CT exam was performed using one or more of the following dose reduction techniques: automated exposure control, adjustment of the mA and/or kV according to patient size, and/or use of iterative reconstruction technique. MIP reconstructed images were created and reviewed. CONTRAST: 112 ml of Optiray 320 was administered intravenously. COMPARISON: No relevant prior studies available. FINDINGS: Pulmonary arteries: Pression no pulmonary embolus or aortic abnormality. Aorta: See above. Lungs and pleural spaces: No abnormality noted. No mass. No consolidation. No significant effusion. No pneumothorax. Heart: No abnormality noted. No cardiomegaly. No significant pericardial effusion. No evidence of RV dysfunction. Bones/joints: Degenerative changes noted throughout the spine. No acute osseous abnormality seen. Soft tissues: No abnormality noted. Lymph nodes: No abnormality noted. No enlarged lymph nodes. Liver: Visualized portion of the liver is cirrhotic. The spleen is probably enlarged but not completely imaged. The pancreas is not assessed. IMPRESSION: 1. No pulmonary embolus or pulmonary infiltrate. 2. Cirrhosis and probable splenomegaly. The pancreas is not evaluated and may be seen partially related to volume averaging on the lowermost image. ACT 112: N/A Electronically signed by Nevaeh Aponte 04-06-2025 2:51 PM Soft Tissue Neck CT 04/06/25 13:44 EXAM: CT Neck With Intravenous Contrast INDICATION: Lump in throat. Vomiting. TECHNIQUE: Axial computed tomography images of the neck with intravenous contrast. Sagittal and coronal reformatted images were created and reviewed. This CT exam was performed using one or more of the following dose reduction techniques: automated exposure control, adjustment of the mA and/or kV according to patient size, and/or use of iterative reconstruction technique. CONTRAST: 112 ml of Optiray 320 was administered intravenously. COMPARISON: No relevant prior studies available. FINDINGS: Oropharynx: No abnormality noted. No significant tonsillar enlargement. No peritonsillar abscess. Hypopharynx: No abnormality noted. Larynx: No abnormality noted. Normal epiglottis. Trachea: No abnormality noted. Retropharyngeal space: No abnormality noted. Submandibular/parotid glands: No abnormality noted. Glands are normal in size. Thyroid: No abnormality noted. Bones/joints: No acute changes. Soft tissues: No significant abnormality noted. Vasculature: No acute abnormality noted. Lymph nodes: No abnormality noted. No lymphadenopathy. Sinuses: Minimal chronic mucosal thickening floor of the right maxillary sinus. Lung apices: No significant abnormality noted. IMPRESSION: No acute findings in the neck. ACT 112: N/A Electronically signed by Nevaeh Aponte 04-06-2025 3:15 PM Medications Administered Discontinued Medications Al Hydrox/Mg Hydrox/Simethicone (Aluminum/Magnesium Susp 30 Ml Udc) 30 ml PO NOW STA Stop: 04/06/25 13:45 Last Admin: 04/06/25 15:18 Dose: Not Given Documented By: ANUSHKA Sodium Chloride (Nss) 1,000 mls @ 999 mls/hr IV .Q1H1M ONE Stop: 04/06/25 15:14 Last Admin: 04/06/25 15:17 Dose: 999 mls/hr Documented By: ANUSHKA Insulin Human Regular (Novolin-R Insulin Per Unit Charge) 8 units IV NOW STA Stop: 04/06/25 15:19 Last Admin: 04/06/25 15:36 Dose: 8 units Documented By: MIRNA Co-signed By: nia Ioversol (Optiray 320 125ml) 112 ml IV ONCE ONE Stop: 04/06/25 14:23 Last Admin: 04/06/25 14:23 Dose: 112 ml Documented By: BIANCA Supervising Physician Co-Signing Physician Notes Presents with choking sensation in throat for the past 2 weeks. Denied dysphagia or odynophagia Reports she had vaginal itching/discharge and was started on fluconazole yesterday for that as well as choking sensation. Vaginal symptoms are resolved Recently completed oral prednisone which she took for about 12 days Reports h/o cirrhosis On exam, General: Obese woman Eyes: PERRL, conjunctivae normal, not pale, anicteric sclerae, EOM intact bilaterally ENMT: External ear and nose normal, No erythema or plaques noted in part of oropharynx visualized Neck: Normal visual inspection, no tracheal deviation, no swelling/tenderness noted Respiratory: Normal respiratory effort, no respiratory distress, lungs clear to auscultation Cardiovascular: RRR S1 S2 Gastrointestinal (Abdomen): Abdomen is not distended, soft, non-tender to palpation, normal bowel sounds Musculoskeletal: No pedal edema Neurologic: Alert and oriented x 3, No focal weakness, sensation grossly intact Psychiatric: Anxious Labs notable for Na of 123 (131 when corrected for hyperglycemia), Cr of 1.38, BG 572, K 5.1, HbA1c 11.1. TBil 2, Alk P 166 Chest CTA did not show any PE or infiltrate. Noted cirrhosis and probable splenomegaly Soft Tissue Neck CT did not show any acute abnormalities Choking sensation or globus Does not have dysphagia/odynophagia With the history she reported, recent steroid, uncontrolled diabetes; cannot rule out esophageal candidiasis Continue fluconazole 200mg daily ENT for direct laryngoscopy GI can evaluate for EGD Uncontrolled DM, New diagnosis HbA1c is 11.1 Patient will need insulin Provided some education DM educator consult Start lantus as well as insulin sliding scale. Adjust as needed Carb controlled heart healthy diet Hyponatremia, multifactorial etiologies - Hyperglycemia, diuretics Monitor Other plans as detailed by Karolina Campbell PA-C
[2025-04-06] MEDS: ONDANSETRON INJ 2 MG/ML 2 ML VIAL IV PRN (17:51)
[2025-04-06] MEDS: SODIUM CHLORIDE 0.9% 1,000 ML IV SCH (17:53)
--- NOTE | 2025-04-06 18:45 | ENT Consultation ---
Date of Consultation April 06, 2025 Assessment & Plan (1) Difficulty in swallowing: (2) Globus sensation: (3) Acid reflux: Plan Dx - globus / dysphagia / neck pain Normal exam and normal imaging No clear ENT diagnosis or etiology for her symptoms which have been ongoing for 2 wks + Poss larygopharyngeal reflux. Poss esophagitis. As noted I do not see an ENT source for her symptoms. Is this something that could be related to her esophageal varices. Consideration should be given to a GI consultation. Further mgmt / disposition per admitting team. Will be happy to re-evaluate for any change in symptoms. History of Present Illness History of Present Illness 50 y/o female with cirrhosis with known esophageal varices, prior breast cancer, IRMA, rheumatoid arthritis, psoriatic arthritis, and empty sella syndrome who presents to the ED today with two weeks of a choking sensation. She was started on empiric fluconazole for possible latoya esophagitis yesterday. Work-up in the ED included CT of the chest and neck, which did not show any mechanical obstruction. Labs in the ED were significant for a glucose of 572, A1c of 11.1, sodium of 123 (corrected due to hyperglycemia - 131), creatinine 1.38 (unknown baseline). VBG was normal with pH 7.40, pCO2 46, pO2 40. INR normal at 1.1. Platelets were 176. Total bilirubin slightly elevated at 2.0, alk phos elevated at 166, AST and ALT were normal at 32 and 37 ENT Update - her symptoms have been going on for 2 weeks. Not acute but perhaps worsening. Concerns for dygeusia and tightness in neck. Known GERD (takes prilosec bid) related to her cirrhosis. Also saw her GI for EGD back in October - told "esophageal varices". Was able to swallow chicken noodle soup today and peanut butter sandwich yesterday. Admits to OCD hx. No voice symptoms. Her CT chest and CT neck both negative today. Nonsmoker Allergies Allergy/AdvReac Type Severity Reaction Status Date / Time adalimumab [From Humira] Allergy Severe swelling Unverified 04/06/25 16:20 of throat Home Medications Medication Instructions Recorded Confirmed Type carvedilol 3.125 mg tablet 3.125 mg PO DAILY 04/06/25 04/06/25 History ergocalciferol (vitamin D2) 1,250 50,000 unit PO WK 04/06/25 04/06/25 History mcg (50,000 unit) capsule fluconazole 100 mg tablet 100 mg PO UD 04/06/25 04/06/25 History furosemide 40 mg tablet 60 mg PO DAILY 04/06/25 04/06/25 History ixekizumab 80 mg/mL subcutaneous 80 mg subcut MONTHLY 04/06/25 04/06/25 History auto-injector (Taltz Autoinjector) omeprazole 20 mg capsule,delayed 20 mg PO BID 04/06/25 04/06/25 History release spironolactone 100 mg tablet 200 mg PO DAILY 04/06/25 04/06/25 History Patient History Medical History (Updated 04/06/25 @ 19:49 by Gerson Steinberg MD) Obstructive sleep apnea Recurrent pleural effusion Psoriatic arthritis Rheumatoid arthritis Acid reflux Liver disease Breast cancer chemo, XRT No longer on tamoxifen Surgical History (Updated 04/06/25 @ 17:25 by Winifred Campbell PA-C) S/P thoracentesis History of hernia repair S/P cholecystectomy Hx of breast surgery History of dilatation and curettage x2 Family History (Updated 04/06/25 @ 17:24 by Winifred Campbell PA-C) Grandmother Diabetes Denies family history of Liver disease Social History (Updated 04/06/25 @ 17:23 by Winifred Campbell PA-C) Smoking Status: Never smoker Hx Alcohol Use: No marital status: Current Living Situation: Spouse Feels Safe at Home: Yes Physical Exam Physical Exam: General: No acute distress, nonlabored respirations. Communication / voice clear and normal Face: normal facial motion Eyes: Extraocular motion is intact. Normal sclera and conjunctiva Ears: External auditory canals are clear. Tympanic membrane is intact and the middle ear is aerated bilaterally. Nose: no external deformity, nares patent. No rhinorrhea or epistaxis. Oral cavity: clear Oropharynx: clear Neck: soft, no masses or lymphadenopathy FLEXIBLE FIBEROPTIC LARYNGOSCOPY: After appropriate aerosolized topical decongestion and anesthesia a flexible fiberoptic laryngoscope was inserted to visualize the nasopharynx, posterior oropharynx, hypopharynx, supraglottic and glottic larynx (including piriform sinus, anterior commissure, arytenoids, false and true cords). The relevant findings were as follows: Both vocal cords mobile. No supraglottic or glottic airway compromise. No mass. Piriforms normal / clear. All essentially negative. Tolerated exam. Results & Data Vital Signs (Past 12 Hours) Vital Signs Temp Pulse Pulse Resp BP BP Pulse Ox 04/06/25 18:33 93 H 22 99 04/06/25 18:30 138/91 04/06/25 18:21 98 H 22 95 04/06/25 18:06 100 H 13 98 04/06/25 18:04 125/90 04/06/25 17:48 102 H 23 95 04/06/25 17:30 131/95 04/06/25 17:27 99 H 26 H 99 04/06/25 17:00 146/110 H 04/06/25 17:00 98 H 21 99 04/06/25 16:39 98 H 23 98 04/06/25 16:30 152/111 H 04/06/25 16:12 100 H 17 97 04/06/25 16:00 135/99 04/06/25 15:42 96 H 04/06/25 15:23 95 H 14 126/90 99 04/06/25 14:28 04/06/25 13:29 36.5 C 103 H 16 135/89 97 O2 Del Method 04/06/25 18:33 Room Air 04/06/25 18:30 04/06/25 18:21 04/06/25 18:06 Room Air 04/06/25 18:04 04/06/25 17:48 04/06/25 17:30 04/06/25 17:27 04/06/25 17:00 04/06/25 17:00 04/06/25 16:39 Room Air 04/06/25 16:30 04/06/25 16:12 Room Air 04/06/25 16:00 04/06/25 15:42 04/06/25 15:23 Room Air 04/06/25 14:28 Room Air 04/06/25 13:29 Room Air Laboratory Results 04/06/25 15:20 Urine Culture - Pending Urine,Clean Catch 04/06/25 04/06/25 04/06/25 16:36 15:20 15:05 WBC RBC Hgb POC Hgb Hct POC Hct MCV MCH MCHC RDW Std Deviation RDW Coeff of Hollis Plt Count MPV Immature Gran % (Auto) Neut % (Auto) Lymph % (Auto) [place] % (Auto) Eos % (Auto) Baso % (Auto) Neut # (Auto) Lymph # (Auto) [place] # (Auto) Eos # (Auto) Baso # (Auto) Immature Gran # (Auto) PT INR APTT PTT Ratio VBG pH 7.40 VBG pCO2 46 VBG pO2 40 VBG HCO3 29 VBG O2 Saturation 61.9 VBG Base Excess 3.0 POC Sodium Sodium POC Potassium Potassium POC Chloride Chloride Carbon Dioxide POC Total CO2 Anion Gap POC Anion Gap POC BUN BUN Creatinine POC Creatinine Est Cr Clr Drug Dosing eGFR BUN/Creatinine Ratio Glucose POC Glucose 423 H* POC Glucose (other) Estimat Average Glucose Hemoglobin A1c Osmolality Calcium POC Ioniz Calcium [place]ia Magnesium Total Bilirubin AST ALT Alkaline Phosphatase Troponin I High Sens Total Protein Albumin Globulin Albumin/Globulin Ratio TSH Urine Color Yellow Urine Appearance Clear Urine pH 6.5 Ur Specific [place] > 1.045 H Urine Protein Negative Urine Glucose (UA) 3+ H Urine Ketones Negative Urine Blood Trace H Urine Nitrite Negative Urine Bilirubin Negative Urine Urobilinogen Negative Ur Leukocyte Esterase Trace H Urine WBC (Auto) 11-20 H Urine RBC (Auto) 0-2 U Hyaline Cast (Auto) 0-2 U Epithel Cells (Auto) 3-5 H Urine Bacteria (Auto) 1+ H Urine Osmolality 567 Ur Random Sodium 34 Urine Comment SARS-CoV-2 (PCR) Influenza Type A (PCR) Influenza Type B (PCR) RSV (RT-PCR) 04/06/25 04/06/25 04/06/25 14:35 14:09 14:00 WBC 8.78 RBC 4.89 Hgb 14.8 POC Hgb 16.7 H Hct 43.5 POC Hct 49 H MCV 89.0 MCH 30.3 MCHC 34.0 RDW Std Deviation 45.1 RDW Coeff of Hollis 14.0 Plt Count 176 MPV 10.5 Immature Gran % (Auto) 1.0 Neut % (Auto) 69.6 Lymph % (Auto) 17.2 [place] % (Auto) 10.5 Eos % (Auto) 0.9 Baso % (Auto) 0.8 Neut # (Auto) 6.11 Lymph # (Auto) 1.51 [place] # (Auto) 0.92 H Eos # (Auto) 0.08 Baso # (Auto) 0.07 Immature Gran # (Auto) 0.09 PT 11.5 INR 1.1 APTT 28 PTT Ratio 1.0 VBG pH VBG pCO2 VBG pO2 VBG HCO3 VBG O2 Saturation VBG Base Excess POC Sodium 123 L Sodium 123 L POC Potassium 5.1 H Potassium 4.9 POC Chloride 90 L Chloride 88 L Carbon Dioxide 24 POC Total CO2 23 L Anion Gap 11 POC Anion Gap 17.0 POC BUN 20 H BUN 21 Creatinine 1.38 H POC Creatinine 1.4 H Est Cr Clr Drug Dosing 67.2 eGFR 46.06 BUN/Creatinine Ratio 15.2 Glucose 572 H* POC Glucose POC Glucose (other) 553 H* Estimat Average Glucose Hemoglobin A1c Osmolality 293 Calcium 9.5 POC Ioniz Calcium [place] 1.14 Magnesium 2.2 Total Bilirubin 2.0 H AST 32 ALT 37 Alkaline Phosphatase 166 H Troponin I High Sens 5.2 Total Protein 8.2 Albumin 4.6 Globulin 3.6 Albumin/Globulin Ratio 1.3 TSH 1.683 Urine Color Urine Appearance Urine pH Ur Specific [place] Urine Protein Urine Glucose (UA) Urine Ketones Urine Blood Urine Nitrite Urine Bilirubin Urine Urobilinogen Ur Leukocyte Esterase Urine WBC (Auto) Urine RBC (Auto) U Hyaline Cast (Auto) U Epithel Cells (Auto) Urine Bacteria (Auto) Urine Osmolality Ur Random Sodium Urine Comment SARS-CoV-2 (PCR) NEGATIVE Influenza Type A (PCR) Negative Influenza Type B (PCR) Negative RSV (RT-PCR) Negative 04/06/25 13:44 WBC RBC Hgb POC Hgb Hct POC Hct MCV MCH MCHC RDW Std Deviation RDW Coeff of Hollis Plt Count MPV Immature Gran % (Auto) Neut % (Auto) Lymph % (Auto) [place] % (Auto) Eos % (Auto) Baso % (Auto) Neut # (Auto) Lymph # (Auto) [place] # (Auto) Eos # (Auto) Baso # (Auto) Immature Gran # (Auto) PT INR APTT PTT Ratio VBG pH VBG pCO2 VBG pO2 VBG HCO3 VBG O2 Saturation VBG Base Excess POC Sodium Sodium POC Potassium Potassium POC Chloride Chloride Carbon Dioxide POC Total CO2 Anion Gap POC Anion Gap POC BUN BUN Creatinine POC Creatinine Est Cr Clr Drug Dosing eGFR BUN/Creatinine Ratio Glucose POC Glucose POC Glucose (other) Estimat Average Glucose 272 Hemoglobin A1c 11.1 H Osmolality Calcium POC Ioniz Calcium [place] Magnesium Total Bilirubin AST ALT Alkaline Phosphatase Troponin I High Sens Total Protein Albumin Globulin Albumin/Globulin Ratio TSH Urine Color Urine Appearance Urine pH Ur Specific [place] Urine Protein Urine Glucose (UA) Urine Ketones Urine Blood Urine Nitrite Urine Bilirubin Urine Urobilinogen Ur Leukocyte Esterase Urine WBC (Auto) Urine RBC (Auto) U Hyaline Cast (Auto) U Epithel Cells (Auto) Urine Bacteria (Auto) Urine Osmolality Ur Random Sodium Urine Comment SARS-CoV-2 (PCR) Influenza Type A (PCR) Influenza Type B (PCR) RSV (RT-PCR) Diagnostic Findings Chest CTA 04/06/25 13:44 EXAM: CT Angiography Chest With Intravenous Contrast INDICATION: Lump in throat. Dyspnea. Vomiting. TECHNIQUE: Axial computed tomographic angiography images of the chest with intravenous contrast. Sagittal and coronal reformatted images were created and reviewed. This CT exam was performed using one or more of the following dose reduction techniques: automated exposure control, adjustment of the mA and/or kV according to patient size, and/or use of iterative reconstruction technique. MIP reconstructed images were created and reviewed. CONTRAST: 112 ml of Optiray 320 was administered intravenously. COMPARISON: No relevant prior studies available. FINDINGS: Pulmonary arteries: Pression no pulmonary embolus or aortic abnormality. Aorta: See above. Lungs and pleural spaces: No abnormality noted. No mass. No consolidation. No significant effusion. No pneumothorax. Heart: No abnormality noted. No cardiomegaly. No significant pericardial effusion. No evidence of RV dysfunction. Bones/joints: Degenerative changes noted throughout the spine. No acute osseous abnormality seen. Soft tissues: No abnormality noted. Lymph nodes: No abnormality noted. No enlarged lymph nodes. Liver: Visualized portion of the liver is cirrhotic. The spleen is probably enlarged but not completely imaged. The pancreas is not assessed. IMPRESSION: 1. No pulmonary embolus or pulmonary infiltrate. 2. Cirrhosis and probable splenomegaly. The pancreas is not evaluated and may be seen partially related to volume averaging on the lowermost image. ACT 112: N/A Electronically signed by Nevaeh Aponte 04-06-2025 2:51 PM Soft Tissue Neck CT 04/06/25 13:44 EXAM: CT Neck With Intravenous Contrast INDICATION: Lump in throat. Vomiting. TECHNIQUE: Axial computed tomography images of the neck with intravenous contrast. Sagittal and coronal reformatted images were created and reviewed. This CT exam was performed using one or more of the following dose reduction techniques: automated exposure control, adjustment of the mA and/or kV according to patient size, and/or use of iterative reconstruction technique. CONTRAST: 112 ml of Optiray 320 was administered intravenously. COMPARISON: No relevant prior studies available. FINDINGS: Oropharynx: No abnormality noted. No significant tonsillar enlargement. No peritonsillar abscess. Hypopharynx: No abnormality noted. Larynx: No abnormality noted. Normal epiglottis. Trachea: No abnormality noted. Retropharyngeal space: No abnormality noted. Submandibular/parotid glands: No abnormality noted. Glands are normal in size. Thyroid: No abnormality noted. Bones/joints: No acute changes. Soft tissues: No significant abnormality noted. Vasculature: No acute abnormality noted. Lymph nodes: No abnormality noted. No lymphadenopathy. Sinuses: Minimal chronic mucosal thickening floor of the right maxillary sinus. Lung apices: No significant abnormality noted. IMPRESSION: No acute findings in the neck. ACT 112: N/A Electronically signed by Nevaeh Aponte 04-06-2025 3:15 PM PG Care Time/CCT Total # of Minutes Spent Total Time Spent with Patient: Total time spent is greater than 50% in coordination of care (as documented) at patient's floor/unit and/or counseling patient: Coding Level of Care Code 25858 IN/OBS CONSULT LVL 4,60M Diagnoses Dysphagia, unspecified type R13.10 Dysphagia type: unspecified Globus sensation R09.A2 Gastroesophageal reflux disease, unspecified whether esophagitis present K21.9 Esophagitis presence: esophagitis presence not specified (1) Difficulty in swallowing Dysphagia type: unspecified Qualified Code(s): R13.10 - Dysphagia, unspecified (3) Acid reflux Esophagitis presence: esophagitis presence not specified Qualified Code(s): K21.9 - Gastro-esophageal reflux disease without esophagitis
[2025-04-06] MEDS: OXYMETAZOLINE 0.05% 30 ML BTL ONE (19:31)
[2025-04-06] MEDS ORDERED: CARBOHYDRATES FOR HYPOGLYCEMIA PO PRN (20:16)
[2025-04-06] MEDS ORDERED: GLUCOSE 40% GEL 15 GM TUBE PO PRN (20:16)
[2025-04-06] MEDS ORDERED: DEXTROSE 50% 50 ML SYRINGE IV PRN (20:16)
[2025-04-06] MEDS ORDERED: GLUCOSE 10 TAB/TUBE PO PRN (20:16)
[2025-04-06] MEDS ORDERED: GLUCAGON FOR INJ 1 MG VIAL SQ PRN (20:16)
[2025-04-06 21:11] LABS: Anion Gap 8.0 (3-11); Blood Urea Nitrogen 17.0 mg/dl (6-23); Calcium 9.0 mg/dl (8.6-10.3); Carbon Dioxide 24.0 mmol/L (21-32); Chloride 92.0 mmol/L (98-107); Creatinine Clr Calc Pharmacy 76.0 ml/min; Glucose 326.0 mg/dl (70-99(Fasting)); Potassium 4.9 mmol/L (3.5-5.1); Sodium 124.0 mmol/L (136-145)
[2025-04-06] MEDS: INSULIN ASPART PER UNIT CHARGE SC SCH (21:18)
[2025-04-06] MEDS: LANTUS PER UNIT CHARGE SQ SCH (21:20)
--- NOTE | 2025-04-07 | Communication Note ---
Date of Service: April 06, 2025 Was asked to check on the patient as patient earlier commented about going to sleep and not waking up. Patient says she just made that statement. She has no thoughts to hurt herself. Says she goes to [place] every Tuesday and has kids and grandkids. Patient questions why she would have come to hospital on busy football match day if she wanted to hut herself. in the room. Patient is clear and does not need to be a suicide 1:1.
--- NOTE | 2025-04-07 06:38 | Electrocardiogram Report ---
Test Reason : Blood Pressure : */* mmHG Vent. Rate : 97 BPM Atrial Rate : 97 BPM P-R Int : 156 ms QRS Dur : 90 ms QT Int : 344 ms P-R-T Axes : 38 8 15 degrees QTcB Int : 436 ms Normal sinus rhythm Possible Anterior infarct , age undetermined Abnormal ECG No previous ECGs available Confirmed by Brennen Wolff ([id number]) on 04/07/2025 6:38:24 AM Referred By: REFERRED SELF Confirmed By: Brennen Wolff
--- NOTE | 2025-04-07 07:30 | Hospitalist Progress Note ---
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 #Persistent globus sensation #Difficulty in swallowing Unclear etiology at present Soft tissue neck CT on admission with no acute findings in the neck, no evidence of mechanical obstruction Normal flexible fiberoptic laryngoscopy done by ENT; no clear ENT source for her symptoms Strong suspicion of esophageal candidiasis given recent prednisone use (for back pain) as well as newly diagnosed uncontrolled DM Was started on empiric fluconazole 1 day SURVEY COORDINATOR by her PCP for possible esophageal candidiasis, vaginal candidiasis Appreciate GI consult Plan for EGD tomorrow for further evaluation Continue fluconazole Doubt cardiac etiology given duration of symptoms, negative troponin and no acute EKG changes TTE ordered on admission and completed this morning, follow-up on results Continue CC diet as tolerated Aspiration precautions #Vaginal candidiasis Continue fluconazole #Hyperglycemia #Newly diagnosed DM BSG 553 at time of presentation No evidence of DKA Possible HHS Likely DMII Hgb A1c 11.1% BSG slowly improving to the 200s with additional of insulin therapy Appreciate glycemic pharm consult, DM educator consult #Hypertonic hyponatremia 2/2 hyperglycemia Corrected Na = 133 for BSG 269 this AM Continue to monitor, suspect to see improvement with BSG control #Abnormal UA UA: 1+ bacteria, trace LE No specific urinary complaints Urine culture pending however suspect asymptomatic bacteria Monitor off antibiotics for now #History of R breast CA S/p surgery and chemotherapy Currently in remission #Cirrhosis With recently diagnosed esophageal varices, portal HTN --> which is why she was started on Coreg Follows with [employer] [facility] in [place] MELD = 11 Notes recurrent pleural effusions previously requiring thoracentesis procedures in the past which were attributed to her cirrhosis Also follows with consumer loan manager in [place] Chest CTA with no significant pleural effusion on admission Appears euvolemic on exam this morning Continue Lasix, Aldactone and Coreg #GERD Continue PPI BID Of note, pt expressed in triage in the ED that she wanted to go to sleep and not wake up because of how poorly she has been feeling. When asked about these statements, she denies being suicidal or having a plan. She reports that she was just frustrated with her health and how she has been feeling. She denies current depression or history of MDD. Behavioral health liaison consulted per protocol but pt adamant at present that she is not suicidal. Behavioral health liaison met with patient last evening. Scored 0 on PHQ-9. DVT Prophylaxis: SCDs/TEDs only in preparation for EGD tomorrow Code Status: FULL CODE Disposition: DC plans uncertain at this time pending EGD evaluation tomorrow Patient seen in collaboration with Dr. Rodriguez. Please see addendum. I spent a total of 46 minutes coordinating, documenting, and providing care for this patient excluding time spent in the performance of separately billed services or time spent by another provider/QHP. This included personally reviewing all current laboratories and imaging studies, medical reconciliation, outpatient chart review and discussion with specialists. This chart was completed in part utilizing Speech Voice Recognition Software. Grammatical errors, random word insertions, pronoun errors, and incomplete sentences are an occasional consequence of this system due to software limitations, ambient noise, and hardware issues. Any formal questions or con cerns about the content, text, or information contained within the body of this dictation should be directly addressed to the provider for clarification. Admission and Anticipated Discharge Date Admission Date: April 06, 2025 Supervising Physician Co-Signing Physician Notes Patient seen and examined at bedside. She continues to report difficulty swallowing. Discussed new diagnosis of type 2 diabetes mellitus, lifestyle changes and medication. GI planning on endoscopy I have reviewed the advanced practitioner's documentation, and I agree with, and take responsibility for the plan of care I spent a total of 20 minutes coordinating, documenting, and providing care for this patient excluding time spent in the performance of separately billed services. All of the aforementioned completed while collaborating with the as signed advanced practitioner for a full treatment plan Subjective Patient seen and examined in room 277-2. Still with persistent choking sensation. Also experiencing some nausea this morning. Tolerating oral medications. Review of Systems Review of Systems: At least ten systems reviewed and negative, except as noted in the subjective section. Physical Exam Physical Exam: General: Obese F, laying down in bed, NAD, A&Ox3 HEENT: Normocephalic, atraumatic, external ear and nose normal, no erythema or plaques seen on visualized oropharynx Respiratory: Normal respiratory effort,CTAB, no wheeze/rales/rhonchi, no accessory muscle use, on RA Cardiovascular: RRR, normal peripheral pulses, no BLE edema Abdomen/GI: Normal bowel sounds, soft, nontender to palpation in all quadrants Extremities/Musculoskeletal: No cyanosis or clubbing, extremities motor strength intact, moves all extremities Neurologic: No overt focal deficits, CN's II-XI not formally tested but appear grossly intact bilaterally Results & Data Results & Data Vital Signs (Past 12 Hours) Vital Signs Temp Pulse Pulse Resp BP BP Pulse Ox 04/07/25 06:45 83 04/07/25 02:09 36.7 C 90 16 129/87 96 04/07/25 01:55 36.7 C 90 16 129/87 96 04/07/25 01:39 89 04/06/25 20:30 97 04/06/25 19:33 94 H 14 142/103 H 98 04/06/25 19:32 95 H O2 Del Method 04/07/25 06:45 04/07/25 02:09 Room Air 04/07/25 01:55 Room Air 04/07/25 01:39 04/06/25 20:30 Room Air 04/06/25 19:33 04/06/25 19:32 Laboratory Results Short CBC 04/06/25 04/07/25 Range/Units 14:00 06:50 WBC 8.78 5.46 (4.8-10.8) K/ul Hgb 14.8 13.3 (12.0-16.0) g/dl Hct 43.5 40.7 (37.0-47.0) % Plt Count 176 113 L (130-400) K/uL BMP 04/06/25 04/06/25 04/07/25 14:00 20:30 06:50 Sodium 123 L 124 L 129 L Potassium 4.9 4.9 4.6 Chloride 88 L 92 L 96 L Carbon Dioxide 24 24 27 BUN 21 17 17 Creatinine 1.38 H 1.22 H 1.25 H Glucose 572 H* 326 H* 255 H Calcium 9.5 9.0 9.0 Liver Function 09/27/25 09/28/25 Range/Units 14:00 06:50 Total Bilirubin 2.0 H 1.5 H (0.2-1.0) mg/dl Direct Bilirubin 0.3 H (0-0.2) mg/dl AST 32 34 (13-39) U/L ALT 37 30 (7-52) U/L Alkaline Phosphatase 166 H 122 H (34-104) U/L Albumin 4.6 3.9 (3.4-5.0) gm/dl Urine 04/06/25 Range/Units 15:20 Urine Color Yellow Urine Appearance Clear (Clear) Urine pH 6.5 (4.5-7.5) Ur Specific [place] > 1.045 H (1.000-1.030) Urine Protein Negative (Negative) Urine Glucose (UA) 3+ H (Negative) (2) Difficulty in swallowing Dysphagia type: unspecified Qualified Code(s): R13.10 - Dysphagia, unspecified
[2025-04-07 07:51] LABS: Hematocrit (blood only) 40.7 % (37.0-47.0); Hemoglobin 13.3 g/dl (12.0-16.0); Immature Granulocytes # (auto) 0.04 K/uL (0.01-0.20); Immature Granulocytes % (auto) 0.7 %; Mean Corpuscular Hemoglobin 30.0 pg (25.0-34.0); Mean Corpuscular Volume 91.9 fL (80.0-100.0); Platelet Count 113 K/uL (130-400); RDW Standard Deviation 47.5 fL (36.4-46.3); Red Blood Count 4.43 M/uL (4.20-5.40); White Blood Count 5.46 K/ul (4.8-10.8)
[2025-04-07 08:10] LABS: Alanine Aminotransferase 30.0 U/L (7-52); Albumin Level 3.9 gm/dl (3.4-5.0); Alkaline Phosphatase 122.0 U/L (34-104); Anion Gap 6.0 (3-11); Bilirubin,Total 1.5 mg/dl (0.2-1.0); Blood Urea Nitrogen 17.0 mg/dl (6-23); Calcium 9.0 mg/dl (8.6-10.3); Carbon Dioxide 27.0 mmol/L (21-32); Chloride 96.0 mmol/L (98-107); Creatinine Clr Calc Pharmacy 75.7 ml/min; Glucose 255.0 mg/dl (70-99(Fasting)); Potassium 4.6 mmol/L (3.5-5.1); Sodium 129.0 mmol/L (136-145); Total Protein 6.8 gm/dl (6.0-8.3)
[2025-04-07] MEDS ORDERED: PHARMACY GLYCEMIC MGMT CONSULT PRN (08:21)
[2025-04-07] MEDS: LANTUS PER UNIT CHARGE SQ SCH (10:02)
[2025-04-07] MEDS: FUROSEMIDE 20 MG TAB PO SCH (10:05)
[2025-04-07] MEDS: FLUCONAZOLE 100 MG TAB PO SCH (10:05)
[2025-04-07] MEDS: SPIRONOLACTONE 100 MG TAB PO SCH (10:05)
--- NOTE | 2025-04-07 10:56 | Gastrointestinal Consultation ---
Date of Consultation April 07, 2025 Assessment & Plan (1) Choking sensation: (2) Difficulty in swallowing: (3) Diabetes mellitus, new onset: (4) Globus sensation: (5) Cirrhosis: (6) Portal hypertension: (7) Ascites controlled with medication: Patient has had a fairly persistent globus sensation for the past 2 weeks now. I do think Mesha esophagitis is most likely the culprit here especially given her recent prednisone use as well as her newly diagnosed uncontrolled diabetes. She has already been started on Diflucan and I would continue her on this. I would like to proceed with an endoscopy tomorrow to confirm the diagnosis and to look for any other mucosal-based pathology that could be causing her issues. She is agreeable to this. In regards to her cirrhosis, her MELD is calculated to be 11. We will continue her on her Coreg, spironolactone, and Lasix. 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 Of note, her last EGD was in October. History of Present Illness Reason for Consultation: Globus sensation Attending Physician: Dameon Rodriguez MD History of Present Illness Patient is a 50-year-old female who has had 2 weeks of what she describes as neck tightness. Because of this, she has had difficulty with swallowing although it sounds as if she is denying any dennis dysphagia or odynophagia. She had been given a course of prednisone recently so there was concern that she could have both oral and esophageal Mesha. She was just recently started on Diflucan. She has only received 2 to 3 days worth of this. This has improved some vaginal issues she was having but has not improved her swallowing. She has a history of having cirrhosis diagnosed years ago. Her complications thus far have included portal hypertension as well as ascites. She is maintained on Coreg, Lasix, and Aldactone. She has never had GI bleeding before. She generally follows with hepatology in [place]. When she presented she was noted to be hyperglycemic. Her hemoglobin A1c is 11.1. This is a new diagnosis for her. She underwent a CT of the neck as well as a CTA of the chest both of which were unremarkable. Allergies Allergy/AdvReac Type Severity Reaction Status Date / Time adalimumab [From Humira] Allergy Severe swelling Unverified 04/06/25 16:20 of throat Home Medications Medication Instructions Recorded Confirmed Type carvedilol 3.125 mg tablet 3.125 mg PO DAILY 04/06/25 04/06/25 History ergocalciferol (vitamin D2) 1,250 50,000 unit PO WK 04/06/25 04/06/25 History mcg (50,000 unit) capsule fluconazole 100 mg tablet 100 mg PO UD 04/06/25 04/06/25 History furosemide 40 mg tablet 60 mg PO DAILY 04/06/25 04/06/25 History ixekizumab 80 mg/mL subcutaneous 80 mg subcut MONTHLY 04/06/25 04/06/25 History auto-injector (Taltz Autoinjector) omeprazole 20 mg capsule,delayed 20 mg PO BID 04/06/25 04/06/25 History release spironolactone 100 mg tablet 200 mg PO DAILY 04/06/25 04/06/25 History Patient History Medical History (Updated 04/07/25 @ 10:54 by Rica Diaz DO) Cirrhosis Obstructive sleep apnea Recurrent pleural effusion Psoriatic arthritis Rheumatoid arthritis Acid reflux Liver disease Breast cancer chemo, XRT No longer on tamoxifen Surgical History (Updated 04/06/25 @ 17:25 by Winifred Campbell PA-C) S/P thoracentesis History of hernia repair S/P cholecystectomy Hx of breast surgery History of dilatation and curettage x2 Family History (Updated 04/06/25 @ 17:24 by Winifred Campbell PA-C) Grandmother Diabetes Denies family history of Liver disease Social History (Updated 04/06/25 @ 17:23 by Wniifred Campbell PA-C) Smoking Status: Never smoker Second Hand Exposure: No; Hx Alcohol Use: No Hx Substance Use: No Preferred Language: [place] Communication Ability: Effective 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 Beliefs That Will Affect Care: None marital status: Current Living Situation: Spouse Feels Safe at Home: Yes Assistive Devices: Contacts and Walker Physical Exam Constitutional: WD/WN, vitals as above Eyes: PERRL, conjunctivae normal, anicteric sclerae Neck: trachea midline, no thyromegaly Respiratory: normal respiratory effort, lungs clear to auscultation Cardiovascular: RRR, no murmur, no edema Gastrointestinal (Abdomen): normal bowel sounds, soft, nontender, no hepatosplenomegaly Skin: no rashes, warm and dry Results & Data Vital Signs (Past 12 Hours) Vital Signs Temp Pulse Pulse Pulse Resp BP Pulse Ox 04/07/25 09:08 36.9 C 97 H 18 132/85 98 04/07/25 06:45 83 04/07/25 02:09 36.7 C 90 16 129/87 96 04/07/25 01:55 36.7 C 90 16 129/87 96 04/07/25 01:39 89 O2 Del Method 04/07/25 09:08 Room Air 04/07/25 06:45 04/07/25 02:09 Room Air 04/07/25 01:55 Room Air 04/07/25 01:39 Laboratory Results 04/06/25 15:20 Urine Culture - Preliminary Urine,Clean Catch Pin-point growth present, reincubating. 04/07/25 04/07/25 04/07/25 08:23 06:50 01:11 WBC 5.46 RBC 4.43 Hgb 13.3 POC Hgb Hct 40.7 POC Hct MCV 91.9 MCH 30.0 MCHC 32.7 RDW Std Deviation 47.5 H RDW Coeff of Hollis 14.1 Plt Count 113 L MPV 10.4 Immature Gran % (Auto) 0.7 Neut % (Auto) 53.2 Lymph % (Auto) 31.3 [place] % (Auto) 10.4 Eos % (Auto) 3.7 Baso % (Auto) 0.7 Neut # (Auto) 2.90 Lymph # (Auto) 1.71 [place] # (Auto) 0.57 Eos # (Auto) 0.20 Baso # (Auto) 0.04 Immature Gran # (Auto) 0.04 PT INR APTT PTT Ratio VBG pH VBG pCO2 VBG pO2 VBG HCO3 VBG O2 Saturation VBG Base Excess POC Sodium Sodium 129 L POC Potassium Potassium 4.6 POC Chloride Chloride 96 L Carbon Dioxide 27 POC Total CO2 Anion Gap 6 POC Anion Gap POC BUN BUN 17 Creatinine 1.25 H POC Creatinine Est Cr Clr Drug Dosing 75.7 eGFR 51.86 BUN/Creatinine Ratio 13.6 Glucose 255 H POC Glucose 269 H 261 H POC Glucose (other) Estimat Average Glucose Hemoglobin A1c Osmolality Calcium 9.0 POC Ioniz Calcium [place] Delia Magnesium Total Bilirubin 1.5 H Direct Bilirubin 0.3 H AST 34 ALT 30 Alkaline Phosphatase 122 H Troponin I High Sens Total Protein 6.8 Albumin 3.9 Globulin Albumin/Globulin Ratio TSH Urine Color Urine Appearance Urine pH Ur Specific [place] Urine Protein Urine Glucose (UA) Urine Ketones Urine Blood Urine Nitrite Urine Bilirubin Urine Urobilinogen Ur Leukocyte Esterase Urine WBC (Auto) Urine RBC (Auto) U Hyaline Cast (Auto) U Epithel Cells (Auto) Urine Bacteria (Auto) Urine Osmolality Ur Random Sodium Urine Comment SARS-CoV-2 (PCR) Influenza Type A (PCR) Influenza Type B (PCR) RSV (RT-PCR) 04/06/25 04/06/25 04/06/25 20:41 20:30 16:36 WBC RBC Hgb POC Hgb Hct POC Hct MCV MCH MCHC RDW Std Deviation RDW Coeff of Hollis Plt Count MPV Immature Gran % (Auto) Neut % (Auto) Lymph % (Auto) [place] % (Auto) Eos % (Auto) Baso % (Auto) Neut # (Auto) Lymph # (Auto) [place] # (Auto) Eos # (Auto) Baso # (Auto) Immature Gran # (Auto) PT INR APTT PTT Ratio VBG pH VBG pCO2 VBG pO2 VBG HCO3 VBG O2 Saturation VBG Base Excess POC Sodium Sodium 124 L POC Potassium Potassium 4.9 POC Chloride Chloride 92 L Carbon Dioxide 24 POC Total CO2 Anion Gap 8 POC Anion Gap POC BUN BUN 17 Creatinine 1.22 H POC Creatinine Est Cr Clr Drug Dosing 76.0 eGFR 53.40 BUN/Creatinine Ratio 13.9 Glucose 326 H* POC Glucose 339 H* 423 H* POC Glucose (other) Estimat Average Glucose Hemoglobin A1c Osmolality Calcium 9.0 POC Ioniz Calcium [place] Magnesium Total Bilirubin Direct Bilirubin AST ALT Alkaline Phosphatase Troponin I High Sens 4.0 Total Protein Albumin Globulin Albumin/Globulin Ratio TSH Urine Color Urine Appearance Urine pH Ur Specific [place] Urine Protein Urine Glucose (UA) Urine Ketones Urine Blood Urine Nitrite Urine Bilirubin Urine Urobilinogen Ur Leukocyte Esterase Urine WBC (Auto) Urine RBC (Auto) U Hyaline Cast (Auto) U Epithel Cells (Auto) Urine Bacteria (Auto) Urine Osmolality Ur Random Sodium Urine Comment SARS-CoV-2 (PCR) Influenza Type A (PCR) Influenza Type B (PCR) RSV (RT-PCR) 04/06/25 04/06/25 04/06/25 15:20 15:05 14:35 WBC RBC Hgb POC Hgb Hct POC Hct MCV MCH MCHC RDW Std Deviation RDW Coeff of Hollis Plt Count MPV Immature Gran % (Auto) Neut % (Auto) Lymph % (Auto) [place] % (Auto) Eos % (Auto) Baso % (Auto) Neut # (Auto) Lymph # (Auto) [place] # (Auto) Eos # (Auto) Baso # (Auto) Immature Gran # (Auto) PT INR APTT PTT Ratio VBG pH 7.40 VBG pCO2 46 VBG pO2 40 VBG HCO3 29 VBG O2 Saturation 61.9 VBG Base Excess 3.0 POC Sodium Sodium POC Potassium Potassium POC Chloride Chloride Carbon Dioxide POC Total CO2 Anion Gap POC Anion Gap POC BUN BUN Creatinine POC Creatinine Est Cr Clr Drug Dosing eGFR BUN/Creatinine Ratio Glucose POC Glucose POC Glucose (other) Estimat Average Glucose Hemoglobin A1c Osmolality Calcium POC Ioniz Calcium [place] Magnesium Total Bilirubin Direct Bilirubin AST ALT Alkaline Phosphatase Troponin I High Sens Total Protein Albumin Globulin Albumin/Globulin Ratio TSH Urine Color Yellow Urine Appearance Clear Urine pH 6.5 Ur Specific [place] > 1.045 H Urine Protein Negative Urine Glucose (UA) 3+ H Urine Ketones Negative Urine Blood Trace H Urine Nitrite Negative Urine Bilirubin Negative Urine Urobilinogen Negative Ur Leukocyte Esterase Trace H Urine WBC (Auto) 11-20 H Urine RBC (Auto) 0-2 U Hyaline Cast (Auto) 0-2 U Epithel Cells (Auto) 3-5 H Urine Bacteria (Auto) 1+ H Urine Osmolality 567 Ur Random Sodium 34 Urine Comment SARS-CoV-2 (PCR) NEGATIVE Influenza Type A (PCR) Negative Influenza Type B (PCR) Negative RSV (RT-PCR) Negative 04/06/25 04/06/25 04/06/25 14:09 14:00 13:44 WBC 8.78 RBC 4.89 Hgb 14.8 POC Hgb 16.7 H Hct 43.5 POC Hct 49 H MCV 89.0 MCH 30.3 MCHC 34.0 RDW Std Deviation 45.1 RDW Coeff of Hollis 14.0 Plt Count 176 MPV 10.5 Immature Gran % (Auto) 1.0 Neut % (Auto) 69.6 Lymph % (Auto) 17.2 [place] % (Auto) 10.5 Eos % (Auto) 0.9 Baso % (Auto) 0.8 Neut # (Auto) 6.11 Lymph # (Auto) 1.51 [place] # (Auto) 0.92 H Eos # (Auto) 0.08 Baso # (Auto) 0.07 Immature Gran # (Auto) 0.09 PT 11.5 INR 1.1 APTT 28 PTT Ratio 1.0 VBG pH VBG pCO2 VBG pO2 VBG HCO3 VBG O2 Saturation VBG Base Excess POC Sodium 123 L Sodium 123 L POC Potassium 5.1 H Potassium 4.9 POC Chloride 90 L Chloride 88 L Carbon Dioxide 24 POC Total CO2 23 L Anion Gap 11 POC Anion Gap 17.0 POC BUN 20 H BUN 21 Creatinine 1.38 H POC Creatinine 1.4 H Est Cr Clr Drug Dosing 67.2 eGFR 46.06 BUN/Creatinine Ratio 15.2 Glucose 572 H* POC Glucose POC Glucose (other) 553 H* Estimat Average Glucose 272 Hemoglobin A1c 11.1 H Osmolality 293 Calcium 9.5 POC Ioniz Calcium [place] 1.14 Magnesium 2.2 Total Bilirubin 2.0 H Direct Bilirubin AST 32 ALT 37 Alkaline Phosphatase 166 H Troponin I High Sens 5.2 Total Protein 8.2 Albumin 4.6 Globulin 3.6 Albumin/Globulin Ratio 1.3 TSH 1.683 Urine Color Urine Appearance Urine pH Ur Specific [place] Urine Protein Urine Glucose (UA) Urine Ketones Urine Blood Urine Nitrite Urine Bilirubin Urine Urobilinogen Ur Leukocyte Esterase Urine WBC (Auto) Urine RBC (Auto) U Hyaline Cast (Auto) U Epithel Cells (Auto) Urine Bacteria (Auto) Urine Osmolality Ur Random Sodium Urine Comment SARS-CoV-2 (PCR) Influenza Type A (PCR) Influenza Type B (PCR) RSV (RT-PCR) Medications Administered Home Medications Medication Instructions Recorded Confirmed Last Taken carvedilol 3.125 mg tablet 3.125 mg PO DAILY 04/06/25 04/06/25 Unknown ergocalciferol (vitamin D2) 1,250 50,000 unit PO WK 04/06/25 04/06/25 Unknown mcg (50,000 unit) capsule fluconazole 100 mg tablet 100 mg PO UD 04/06/25 04/06/25 Unknown furosemide 40 mg tablet 60 mg PO DAILY 04/06/25 04/06/25 Unknown ixekizumab 80 mg/mL subcutaneous 80 mg subcut MONTHLY 04/06/25 04/06/25 Unknown auto-injector (Taltz Autoinjector) omeprazole 20 mg capsule,delayed 20 mg PO BID 04/06/25 04/06/25 Unknown release spironolactone 100 mg tablet 200 mg PO DAILY 04/06/25 04/06/25 Unknown Active Medications Generic Name Dose Route Start Last Admin Trade Name Rosalie PRN Reason Stop Dose Admin Carvedilol 3.125 mg 04/07/25 09:00 04/07/25 10:05 Carvedilol 3.125 Mg Tab PO 05/07/25 08:59 3.125 mg DAILY ILIA Administration Fluconazole 200 mg 04/07/25 09:00 04/07/25 10:05 Fluconazole 100 Mg Tab PO 04/17/25 08:59 200 mg QAM ILIA Administration Furosemide 60 mg 04/07/25 09:00 04/07/25 10:05 Furosemide 20 Mg Tab PO 05/07/25 08:59 60 mg DAILY ILIA Administration Insulin Aspart 0 units 04/06/25 21:00 04/07/25 09:20 Insulin Aspart Per Unit Charge SC 05/06/25 20:59 12 units ACHS ILIA Administration Insulin Glargine 10 units 04/06/25 21:00 04/06/25 21:20 Lantus Per Unit Charge SQ 05/06/25 20:59 10 units HS ILIA Administration Insulin Glargine 15 units 04/07/25 09:30 04/07/25 10:02 Lantus Per Unit Charge SQ 04/07/25 11:00 15 units QAM ILIA Administration Ondansetron HCl 4 mg 04/06/25 17:29 04/07/25 09:20 Ondansetron Inj 2 Mg/Ml 2 Ml Vial IV 05/06/25 17:28 4 mg Q6H PRN Administration Nausea And Vomiting Pantoprazole Sodium 40 mg 04/06/25 21:00 04/07/25 10:05 Pantoprazole 40 Mg Tab PO 05/06/25 20:59 40 mg BID ILIA Administration Spironolactone 200 mg 04/07/25 09:00 04/07/25 10:05 Spironolactone 100 Mg Tab PO 05/07/25 08:59 200 mg DAILY ILIA Administration PG Care Time/CCT Total # of Minutes Spent Total Time Spent with Patient: Total time spent is greater than 50% in coordination of care (as documented) at patient's floor/unit and/or counseling patient: Coding Level of Care Code 16665 IN/OBS CONSULT LVL 4,60M Diagnoses Choking sensation R09.89 Dysphagia, unspecified type R13.10 Dysphagia type: unspecified Diabetes mellitus, new onset E11.9 Globus sensation R09.A2 Cirrhosis K74.60 Portal hypertension K76.6 Ascites controlled with medication R18.8 (2) Difficulty in swallowing Dysphagia type: unspecified Qualified Code(s): R13.10 - Dysphagia, unspecified
--- NOTE | 2025-04-07 14:20 | XCELERA ---
[id number]
--- NOTE | 2025-04-07 14:41 | Pharmacy Report ---
Pharmacy Glycemic Short Note 2 - Date of Service April 07, 2025 - Glycemic Short BSG Results (Last 24 hours): 04/06/25 04/06/25 04/06/25 14:00 16:36 20:30 Glucose 572 H* 326 H* POC Glucose 423 H* 04/06/25 04/07/25 04/07/25 20:41 01:11 06:50 Glucose 255 H POC Glucose 339 H* 261 H 04/07/25 04/07/25 04/07/25 08:23 11:53 11:54 Glucose POC Glucose 269 H 386 H* 405 H* OUTPATIENT ANTIDIABETIC REGIMEN: * none ASSESSMENT: * New diagnosis of diabetes, A1c 11.1%. * Patient was started on basal + bolus SC insulin on 04/06. * Fasting BSG 269 mg/dL today. Will continue to titrate basal insulin based on BSG trend. Will aim for ~0.2 unit/kg total today. * Lunch BSG 386 mg/dL after 12 units of Novolog with breakfast. Will tighten CF/CR. PLAN FOR INPATIENT GLYCEMIC CONTROL: * Basal insulin * Lantus 15 units SC this morning * Lantus 0-10 units SC this evening * Bolus insulin * NovoLog per scale ACHS or Q6hrs while NPO * Goal Range: Low 120 mg/dL - High 160 mg/dL * Correction Factor: 15 mg/dL/unit * Nutritional / Prandial insulin per carb ratio of 1 unit per 5 grams CHO consumed
[2025-04-07] MEDS: LIDOCAINE VISCOUS 2% 15 ML UDC MT PRN ×2 (15:00→21:04)
[2025-04-07] MEDS: LANTUS PER UNIT CHARGE SC ONE (15:30)
[2025-04-07] MEDS ORDERED: LANTUS PER UNIT CHARGE SQ SCH (16:30)
[2025-04-08] MEDS: INSULIN ASPART PER UNIT CHARGE SC SCH ×2 (00:11→20:44)
[2025-04-08 07:12] LABS: Hematocrit (blood only) 41.2 % (37.0-47.0); Hemoglobin 14.4 g/dl (12.0-16.0); Mean Corpuscular Hemoglobin 31.4 pg (25.0-34.0); Mean Corpuscular Volume 89.8 fL (80.0-100.0); Platelet Count 138 K/uL (130-400); RDW Standard Deviation 45.2 fL (36.4-46.3); Red Blood Count 4.59 M/uL (4.20-5.40); White Blood Count 6.00 K/ul (4.8-10.8)
--- NOTE | 2025-04-08 07:18 | Anesthesiology Consultation ---
Date of Service April 08, 2025 Assessment & Plan (1) Encounter for pre-operative examination: Chart Review Chart Review: Acceptable Risk for Surgery History Surgery Operation Date: 04/08/25 16:55 Proposed Procedures p Esophagogastroduodenoscopy Dr. Jose Garcia MD Height/Weight Height: 5 ft 9 in Weight: 128 kg Allergies Allergy/AdvReac Type Severity Reaction Status Date / Time adalimumab [From Humira] Allergy Severe swelling Unverified 04/06/25 16:20 of throat Medications Home Medications Medication Instructions Recorded Confirmed Last Taken carvedilol 3.125 mg tablet 3.125 mg PO DAILY 04/06/25 04/06/25 Unknown ergocalciferol (vitamin D2) 1,250 50,000 unit PO WK 04/06/25 04/06/25 Unknown mcg (50,000 unit) capsule fluconazole 100 mg tablet 100 mg PO UD 04/06/25 04/06/25 Unknown furosemide 40 mg tablet 60 mg PO DAILY 04/06/25 04/06/25 Unknown ixekizumab 80 mg/mL subcutaneous 80 mg subcut MONTHLY 04/06/25 04/06/25 Unknown auto-injector (Taltz Autoinjector) omeprazole 20 mg capsule,delayed 20 mg PO BID 04/06/25 04/06/25 Unknown release spironolactone 100 mg tablet 200 mg PO DAILY 04/06/25 04/06/25 Unknown Active Medications Generic Name Dose Route Start Last Admin Trade Name Freq PRN Reason Stop Dose Admin Carvedilol 3.125 mg 04/07/25 09:00 04/07/25 10:05 Carvedilol 3.125 Mg Tab PO 05/07/25 08:59 3.125 mg DAILY ILIA Administration Fluconazole 200 mg 04/07/25 09:00 04/07/25 10:05 Fluconazole 100 Mg Tab PO 04/17/25 08:59 200 mg QAM ILIA Administration Furosemide 60 mg 04/07/25 09:00 04/07/25 10:05 Furosemide 20 Mg Tab PO 05/07/25 08:59 60 mg DAILY ILIA Administration Insulin Aspart 0 units 04/08/25 00:00 04/08/25 06:06 Insulin Aspart Per Unit Charge SC 05/08/25 00:00 2 units Q6 ILIA Administration Lidocaine HCl 15 ml 04/07/25 18:06 04/07/25 21:04 Lidocaine Viscous 2% 15 Ml Udc MT 05/07/25 13:40 15 ml Q4H PRN Administration Odynophagia Ondansetron HCl 4 mg 04/06/25 17:29 04/07/25 09:20 Ondansetron Inj 2 Mg/Ml 2 Ml Vial IV 05/06/25 17:28 4 mg Q6H PRN Administration Nausea And Vomiting Pantoprazole Sodium 40 mg 04/06/25 21:00 04/07/25 21:03 Pantoprazole 40 Mg Tab PO 05/06/25 20:59 40 mg BID ILIA Administration Spironolactone 200 mg 04/07/25 09:00 04/07/25 10:05 Spironolactone 100 Mg Tab PO 05/07/25 08:59 200 mg DAILY ILIA Administration Past Medical History Medical History (Updated 04/08/25 @ 07:18 by Rashad Schmitt MD) Obesity Cirrhosis Obstructive sleep apnea Recurrent pleural effusion Psoriatic arthritis Rheumatoid arthritis Acid reflux Liver disease Breast cancer chemo, XRT No longer on tamoxifen Past Family History Family History Grandmother Diabetes Denies family history of Liver disease Past Surgical History Surgical History S/P thoracentesis History of hernia repair S/P cholecystectomy Hx of breast surgery History of dilatation and curettage x2 Social History Smoking Status: Never smoker Hx Alcohol Use: No Hx Substance Use: No Physical Exam Vital Signs Last Vital Signs Temp 36.3 C L 04/08/25 03:52 Pulse 94 H 04/08/25 07:08 Resp 16 04/08/25 03:52 BP 114/83 04/08/25 03:52 Pulse Ox 98 04/08/25 03:52 O2 Del Method Room Air 04/08/25 03:52 Testing Laboratory Results 04/08/25 06:37 PT 11.5 Seconds (9.0-12.0) 04/06/25 14:00 INR 1.1 (0.9-1.1) 04/06/25 14:00 APTT 28 Seconds (21-31) 04/06/25 14:00 Hemoglobin A1c 11.1 % (4.5-5.6) H 04/06/25 13:44 Urine Color Yellow 04/06/25 15:20 Urine Appearance Clear (Clear) 04/06/25 15:20 Urine pH 6.5 (4.5-7.5) 04/06/25 15:20 Ur Specific [place] > 1.045 (1.000-1.030) H 04/06/25 15:20 Urine Protein Negative (Negative) 04/06/25 15:20 Urine Glucose (UA) 3+ (Negative) H 04/06/25 15:20 Urine Ketones Negative (Negative) 04/06/25 15:20 Urine Nitrite Negative (Negative) 04/06/25 15:20 Ur Leukocyte Esterase Trace (Negative) H 04/06/25 15:20 Urine WBC (Auto) 11-20 /hpf (0-5) H 04/06/25 15:20 Urine RBC (Auto) 0-2 /hpf (0-2) 04/06/25 15:20 U Hyaline Cast (Auto) 0-2 /lpf (0-2) 04/06/25 15:20 U Epithel Cells (Auto) 3-5 /hpf (0-2) H 04/06/25 15:20 Urine Bacteria (Auto) 1+ (None Seen) H 04/06/25 15:20 04/06/25 15:20 Urine Culture - Preliminary Urine,Clean Catch Pin-point growth present, reincubating. 04/08/25 04/07/25 04/07/25 05:58 23:43 20:02 POC Glucose 189 H 161 H 243 H Laboratory Tests 04/06/25 04/07/25 13:44 06:50 Potassium 4.6 Creatinine 1.25 H Hemoglobin A1c 11.1 H Echocardiogram Date: 04/07/25 EF: 55-60% LV Function: normal Valvular Disease: + no significant valvular disease
[2025-04-08 07:43] LABS: Alanine Aminotransferase 38.0 U/L (7-52); Albumin Globulin Ratio 1.3 (0.9-2); Albumin Level 4.1 gm/dl (3.4-5.0); Alkaline Phosphatase 120.0 U/L (34-104); Anion Gap 8.0 (3-11); Bilirubin,Total 1.9 mg/dl (0.2-1.0); Blood Urea Nitrogen 20.0 mg/dl (6-23); Calcium 9.4 mg/dl (8.6-10.3); Carbon Dioxide 29.0 mmol/L (21-32); Chloride 91.0 mmol/L (98-107); Creatinine Clr Calc Pharmacy 62.6 ml/min; Globulin 3.2 gm/dl (2.5-4.0); Glucose 205.0 mg/dl (70-99(Fasting)); Potassium 4.9 mmol/L (3.5-5.1); Sodium 128.0 mmol/L (136-145); Total Protein 7.3 gm/dl (6.0-8.3)
[2025-04-08] MEDS: LANTUS PER UNIT CHARGE SC SCH ×2 (08:17→20:44)
--- NOTE | 2025-04-08 08:27 | Hospitalist Progress Note ---
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 Persistent globus sensation Difficulty in swallowing Soft tissue neck CT on admission with no acute findings in the neck, no evidence of mechanical obstruction Normal flexible fiberoptic laryngoscopy done by ENT; no clear ENT source for her symptoms s/p EGD on 04/08/[address] Garcia: -Medium-sized hiatal hernia -Cricopharyngeal hypertension with globus -Grade II esophageal varices -Normal stomach and examined duodenum -Dilation upper esophageal sphincter to 18mm -Recommendations: HOB elevated 4 inches, no eating 3 hours before bed, 3 months of twice daily PPI therapy protonix 40mg/day Hyperglycemia Newly diagnosed DM BSG 553 at time of presentation without evidence of DKA A1C 11.1% Appreciate glycemic pharm consult for insulin dosing DM educator consulted and will follow up with patient tomorrow Hypertonic hyponatremia 2/2 hyperglycemia Corrected Na = 131 Continue to monitor CKDII Creat 1.22-1.51 this admission with eGFR 41-53 Spoke with office of patient's Social Work Program Coordinator who provided recent labs: -12/28/24 creat 1.36 with eGFR 47 -02/07/25 creat 1.1 -03/11/25 creat 1.42 Home diuretics on hold Ordered 1L NSS Recheck BMP in am Cirrhosis Esophageal varices, portal HTN Follows with [facility] in [place] MELD = 11 Appears euvolemic Continue Coreg Diuretics on hold as above GERD Continue PPI BID Vaginal candidiasis Continue fluconazole Of note, pt expressed in triage in the ED that she wanted to go to sleep and not wake up because of how poorly she has been feeling. When asked about these statements, she denies being suicidal or having a plan. She reports that she was just frustrated with her health and how she has been feeling. She denies current depression or history of MDD. Behavioral health liaison consulted per protocol but pt adamant at present that she is not suicidal. Behavioral health liaison met with patient last evening. Scored 0 on PHQ-9. DVT Prophylaxis: SCDs/TEDs due to EGD today Code Status: FULL CODE PCP: Dr Sargent ([facility] in [place], [place]) Disposition: likely dc tomorrow after DM educator Patient seen in collaboration with Dr. Rodriguez. Please see addendum. I spent a total of 60 minutes coordinating, documenting and providing care for this patient excluding time spent in the performance of separately billed services or time spent by another provider/QHP. Admission and Anticipated Discharge Date Admission Date: April 06, 2025 Supervising Physician Co-Signing Physician Notes Patient seen and examined at bedside. She continues to report difficulty swallowing. Plan for EGD today. will follow up on EGD findings. Continue on insulin; unit educator on board I have reviewed the advanced practitioner's documentation, and I agree with, and take responsibility for the plan of care I spent a total of 20 minutes coordinating, documenting, and providing care for this patient excluding time spent in the performance of separately billed services. All of the aforementioned completed while collaborating with the assigned advanced practitioner for a full treatment plan Subjective Patient seen laying in bed Still reporting difficulty swallowing Reports significant nausea not improved after zofran Denies dizziness, chest pain, SOB, abdominal pain Currently NPO for EGD today Review of Systems Review of Systems: All systems reviewed & are unremarkable except as noted in HPI & below Physical Exam Physical Exam: General/Psych: WD/WN, laying in bed, appears uncomfortable Head: normocephalic, atraumatic Eyes: normal inspection, PERRL, conjunctivae pink ENT: external ear and nose normal, oropharynx normal Neck: normal visual inspection, trachea midline Respiratory: normal respiratory effort, lungs clear to auscultation, no wheeze/rales/rhonchi, no accessory muscle use Cardiovascular: regular rate and rhythm, no murmur/rub/gallop, no JVD Extremities: no cyanosis or clubbing, normal peripheral pulses, no BLE edema Abdomen/GI: normal bowel sounds, soft, nontender Neurologic/MSK: A+Ox3, motor strength 5/5, moves all extremities Skin: no rashes, normal color, warm and dry Results & Data Results & Data Vital Signs (Past 12 Hours) Vital Signs Temp Pulse Pulse Resp BP Pulse Ox O2 Del Method 04/08/25 07:38 37.0 C 91 H 18 117/80 97 Room Air 04/08/25 07:08 94 H 04/08/25 03:52 36.3 C L 90 16 114/83 98 Room Air 04/07/25 23:48 36.6 C 84 16 112/73 97 Room Air 04/07/25 23:21 94 H Laboratory Results Short CBC 04/08/25 Range/Units 06:37 WBC 6.00 (4.8-10.8) K/ul Hgb 14.4 (12.0-16.0) g/dl Hct 41.2 (37.0-47.0) % Plt Count 138 (130-400) K/uL BMP 04/06/25 04/08/25 20:30 06:37 Sodium 124 L 128 L Potassium 4.9 4.9 Chloride 92 L 91 L Carbon Dioxide 24 29 BUN 17 20 Creatinine 1.22 H 1.51 H Glucose 326 H* 205 H Calcium 9.0 9.4 Liver Function 04/08/25 Range/Units 06:37 Total Bilirubin 1.9 H (0.2-1.0) mg/dl AST 55 H (13-39) U/L ALT 38 (7-52) U/L Alkaline Phosphatase 120 H (34-104) U/L Albumin 4.1 (3.4-5.0) gm/dl I have independently reviewed and interpreted patient's labs including CBC, CMP. (2) Difficulty in swallowing Dysphagia type: unspecified Qualified Code(s): R13.10 - Dysphagia, unspecified
[2025-04-08] MEDS: METOCLOPRAMIDE HCL INJ 5 MG/ML 2 ML VIAL IV STA (09:50)
--- NOTE | 2025-04-08 11:00 | History & Physical Bridge Note ---
Date of Service April 08, 2025 History & Physical Bridge Note I have examined the patient, reviewed the History & Physical and in the interval since the performance of the History & Physical I have noted the following changes of clinical significance: no changes noted Keep NPO and proceed with EGD today for further evaluation of globus/assess for esophageal latoya.
[2025-04-08] MEDS: SODIUM CHLORIDE 0.9% 1,000 ML IV SCH (11:21)
--- NOTE | 2025-04-08 12:10 | Pharmacy Report ---
Pharmacy Glycemic Short Note 2 - Date of Service April 08, 2025 - Glycemic Short BSG Results (Last 24 hours): 04/06/25 04/07/25 04/07/25 20:30 14:42 14:44 Glucose 326 H* POC Glucose 395 H* 406 H* 04/07/25 04/07/25 04/07/25 17:11 20:02 23:43 Glucose POC Glucose 241 H 243 H 161 H 04/08/25 04/08/25 04/08/25 05:58 06:37 08:08 Glucose 205 H POC Glucose 189 H 233 H 04/08/25 11:31 Glucose POC Glucose 253 H OUTPATIENT ANTIDIABETIC REGIMEN: * none ASSESSMENT: 04/08 * Patient received total of 77 units of insulin yesterday, of which 30 units were basal * Fasting BSG 189 mg/dL - patient NPO for endoscopy today, will provide slight increase in basal today. Will consider transitioning to once daily basal tomorrow * No change to CF/CR 04/07 * New diagnosis of diabetes, A1c 11.1%. * Patient was started on basal + bolus SC insulin on 04/06. * Fasting BSG 269 mg/dL today. Will continue to titrate basal insulin based on BSG trend. Will aim for ~0.2 unit/kg total today. * Lunch BSG 386 mg/dL after 12 units of Novolog with breakfast. Will tighten CF/CR. PLAN FOR INPATIENT GLYCEMIC CONTROL: * Basal insulin * Lantus 15 units SC this morning (NPO status) * Lantus 15-20 units HS * Bolus insulin * NovoLog per scale ACHS or Q6hrs while NPO * Goal Range: Low 120 mg/dL - High 160 mg/dL * Correction Factor: 15 mg/dL/unit * Nutritional / Prandial insulin per carb ratio of 1 unit per 5 grams CHO consumed
--- NOTE | 2025-04-08 14:15 | Communication Note ---
Date of Service: April 08, 2025 Patient with symptoms of globus. She feels neck tightness as she cannot breathe. However is able to swallow liquids and solids normally. Recent pred nisone use. Patient had an EGD back in October which showed varices. Patient has cirrhosis. She is on spironolactone Lasix and Aldactone. No vomiting or hematemesis. EGD to evaluate globus. Seems less likely this will be stricturing disease based on ability to swallow solids normally. Risk benefits of the procedure explained informed consent obtained
--- NOTE | 2025-04-08 15:02 | GI REPORT ---
[facility] Patient: ADAMA SAM : 1975 Sex at : Female Age: 50 Years Procedure: Upper GI endoscopy Date: 04/08/2025 Attending Physician: Satish Garcia MD Referring MD: Indications: - Globus, throat tightness Medications: - Monitored Anesthesia Care Complications: - No immediate complications. Estimated Blood Loss: - Estimated blood loss: None. Procedure: - The egd scope was introduced through the mouth and advanced to the second part of the duodenum. - The upper GI endoscopy was accomplished without difficulty. - The patient tolerated the procedure well. Findings: - A medium-sized hiatal hernia was present. Upper esophageal sphincter with some resistance to scope passage dilated to 18 mm with a balloon. No bleeding post - Grade II varices were found in the lower third of the esophagus. - The entire examined stomach was normal. - The examined duodenum was normal. Impression: - Medium-sized hiatal hernia. Cricopharyngeal hypertension with globus . - Grade II esophageal varices. - Normal stomach. - Normal examined duodenum. - No specimens collected. - Symptoms certainly suspicious globus . She may be developing some cricopharyngeal hypertension related to reflux and/or regurgitation. We did dilate the upper esophageal sphincter to 18 mm. This may temporarily improve her sensation of globus that will not management. Recommend head of bed elevation 4 inches. No eating hours before bed at night 3 months of twice daily PPI therapy Protonix 40 mg/day. Recommendation: - as per impression Procedure Code(s): - 21364, Esophagogastroduodenoscopy, flexible, transoral; diagnostic, including collection of specimen(s) by brushing or washing, when performed (separate procedure) Diagnosis Code(s): - K44.9, Diaphragmatic hernia without obstruction or gangrene - I85.00, Esophageal varices without bleeding CPT(R) - 2023 copyright [employer]. All Rights Reserved. The CPT codes, CCI edits and ICD codes generated are intended as suggestions and were generated based on input data. These codes are preliminary and upon warp hanger review may be revised to meet current compliance and payer requirements. The provider is responsible for the final determination of appropriate codes, and modifiers. Satish Garcia MD This document has been electronically signed. Note Initiated:04/08/2025 Note Completed:04/08/2025 3:01 PM [id number]
--- NOTE | 2025-04-08 15:03 | Communication Note ---
Date of Service: April 08, 2025 Patient did have a hiatal hernia and grade 2 varices. Esophageal stricture not identified. Because her symptoms are suspicious and consistent with globus which can be caused by chronic acid reflux and regurgitation we did dilate the upper esophageal sphincter to 18 mm. This may give her temporary relief of the globus sensation there was unlikely to be effective long-term. Recommend aggressive treatment for acid reflux and/or regurgitation including twice daily PPI therapy for 3 months head of the bed elevation 4 inches and avoid in of p.o. intake 3 hours prior to recumbency. If patient has persistent symptoms consider barium esophagram with barium tablet
[2025-04-08] MEDS: PROPOFOL IV EMULSION 10 MG/ML 20 ML VIAL IV ONE (15:57)
[2025-04-08] MEDS: LIDOCAINE 2% 2 ML VIAL/AMP(20MG/ML) INFIL ONE (15:57)
--- NOTE | 2025-04-08 18:17 | Anesthesiology Progress Note ---
Date of Service April 08, 2025 Anesthesia Post Procedure Vital Signs Vital Signs: Temp Pulse Pulse Resp BP Pulse Ox O2 Del Method 04/08/25 17:15 36.7 C 98 H 18 102/64 95 Room Air 04/08/25 16:45 36.9 C 106 H 18 115/82 95 Room Air 04/08/25 16:15 36.9 C 99 H 17 131/88 99 Room Air 04/08/25 16:00 36.9 C 97 H 17 123/88 97 Room Air 04/08/25 15:45 36.8 C 95 H 16 122/87 97 Room Air 04/08/25 15:29 93 H 18 129/93 97 Room Air 04/08/25 15:20 105 H 04/08/25 15:14 92 H 18 114/63 95 Room Air 04/08/25 14:59 36.0 C L 98 H 18 97/70 L 94 Room Air 04/08/25 14:59 36.0 C L 98 H 18 97/70 L 96 Room Air 04/08/25 13:49 36.5 C 100 H 16 133/94 98 Room Air 04/08/25 11:26 36.7 C 71 18 135/93 95 Room Air 04/08/25 07:38 37.0 C 91 H 18 117/80 97 Room Air 04/08/25 07:08 94 H 04/08/25 03:52 36.3 C L 90 16 114/83 98 Room Air 04/07/25 23:48 36.6 C 84 16 112/73 97 Room Air 04/07/25 23:21 94 H 04/07/25 19:21 36.6 C 96 H 18 116/81 99 Room Air Transfer of Care Handoff Completed per policy Notes Mental Status: alert / awake / arousable Patient Amnestic to Procedure: Yes Nausea / Vomiting: adequately controlled Pain: adequately controlled Airway Patency, RR, SpO2: stable & adequate BP & HR: stable & adequate Hydration State: stable & adequate Anesthetic Complications: no major complications apparent and Pt Satisfied with anesthetic care
[2025-04-09 08:33] LABS: Hematocrit (blood only) 41.2 % (37.0-47.0); Hemoglobin 14.5 g/dl (12.0-16.0); Mean Corpuscular Hemoglobin 31.4 pg (25.0-34.0); Mean Corpuscular Volume 89.2 fL (80.0-100.0); Platelet Count 159 K/uL (130-400); RDW Standard Deviation 45.4 fL (36.4-46.3); Red Blood Count 4.62 M/uL (4.20-5.40); White Blood Count 6.14 K/ul (4.8-10.8)
[2025-04-09 09:07] LABS: Anion Gap 9.0 (3-11); Calcium 9.1 mg/dl (8.6-10.3); Carbon Dioxide 21.0 mmol/L (21-32); Chloride 95.0 mmol/L (98-107); Potassium 4.7 mmol/L (3.5-5.1); Sodium 125.0 mmol/L (136-145)
[2025-04-09 09:13] LABS: Blood Urea Nitrogen 19.0 mg/dl (6-23); Creatinine Clr Calc Pharmacy 71.4 ml/min; Glucose 215.0 mg/dl (70-99(Fasting))
[2025-04-09] MEDS: LANTUS PER UNIT CHARGE SC SCH (09:31)
--- NOTE | 2025-04-09 10:45 | Pharmacy Report ---
Pharmacy Glycemic Short Note 2 - Date of Service April 09, 2025 - Glycemic Short BSG Results (Last 24 hours): 04/08/25 04/08/25 04/08/25 11:31 13:57 17:15 Glucose POC Glucose 253 H 217 H 246 H 04/08/25 04/09/25 04/09/25 20:15 07:04 08:04 Glucose 215 H POC Glucose 227 H 219 H OUTPATIENT ANTIDIABETIC REGIMEN: * none ASSESSMENT: 04/09 * Patient received total of 59 units of insulin yesterday, of which 35 units were basal insulin * Fasting BSG ~219 mg/dL - will transition to once daily basal and give full dose 35 units this AM * Continue same CF/CR for now 04/08 * Patient received total of 77 units of insulin yesterday, of which 30 units were basal * Fasting BSG 189 mg/dL - patient NPO for endoscopy today, will provide slight increase in basal today. Will consider transitioning to once daily basal tomorrow * No change to CF/CR 04/07 * New diagnosis of diabetes, A1c 11.1%. * Patient was started on basal + bolus SC insulin on 04/06. * Fasting BSG 269 mg/dL today. Will continue to titrate basal insulin based on BSG trend. Will aim for ~0.2 unit/kg total today. * Lunch BSG 386 mg/dL after 12 units of Novolog with breakfast. Will tighten CF/CR. PLAN FOR INPATIENT GLYCEMIC CONTROL: * Basal insulin * Lantus 35 units daily * Bolus insulin * NovoLog per scale ACHS or Q6hrs while NPO * Goal Range: Low 120 mg/dL - High 160 mg/dL * Correction Factor: 15 mg/dL/unit * Nutritional / Prandial insulin per carb ratio of 1 unit per 5 grams CHO consumed
--- NOTE | 2025-04-09 11:30 | Gastroenterology Progress Note ---
Date of Service April 09, 2025 Assessment & Plan (1) Choking sensation: Plan: Possible cricopharyngeal hypertension vs GERD Improved with esophageal dilation. -Continue Omeprazole 20 mg BID upon discharge -Follow-up with her primary GI upon discharge Admission and Anticipated Discharge Date Admission Date: April 06, 2025 Supervising Physician Co-Signing Physician Notes Patient discharged prior to being seen. Agree with above. Subjective Patient is a 50 yo female with dysphagia. She had an EGD yesterday. No clear findings were noted, but dilatation was performed with low hopes of improvement. Despite this patient notes she feels better today. She is eating at the bedside. She tells me she is being discharged today. Review of Systems Gastrointestinal: no dysphagia Physical Exam Constitutional: well developed Respiratory: normal respiratory effort Psychiatric: Orientation: alert and oriented x 3 Results & Data Results & Data Vital Signs (Past 12 Hours) Vital Signs Temp Pulse Pulse Resp BP Pulse Ox O2 Del Method 04/09/25 07:49 91 H 04/09/25 04:35 36.8 C 86 20 100/68 92 Room Air 04/09/25 00:17 37.1 C 82 20 128/74 95 Room Air PG Care Time/CCT Total # of Minutes Spent Total Time Spent with Patient: Total time spent is greater than 50% in coordination of care (as documented) at patient's floor/unit and/or counseling patient: Coding Level of Care Code 35185 SUB INP/OBS CARE 2/35MIN Diagnoses Choking sensation R09.89
--- NOTE | 2025-04-09 14:03 | Discharge Summary ---
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 Persistent globus sensation Difficulty in swallowing Soft tissue neck CT on admission with no acute findings in the neck, no evidence of mechanical obstruction Normal flexible fiberoptic laryngoscopy done by ENT; no clear ENT source for her symptoms s/p EGD on 04/08/[address] Garcia: -Medium-sized hiatal hernia -Cricopharyngeal hypertension with globus -Grade II esophageal varices -Normal stomach and examined duodenum -Dilation upper esophageal sphincter to 18mm -Recommendations: HOB elevated 4 inches, no eating 3 hours before bed, 3 months of twice daily PPI therapy protonix 40mg/day Hyperglycemia Newly diagnosed DM BSG 553 at time of presentation without evidence of DKA A1C 11.1% Patient met with tobacco prevention health educator while inpatient Discharged on lantus 35 units daily with supplies to check BSG tid Recommend follow up with PCP/Press Set Up Person Hypertonic hyponatremia Likely secondary to hyperglycemia and spironolactone use Corrected Na 128 today Recheck BMP in one week Recommend follow up with PCP/Protector Plate Attacher Consider dose reduction of spironolactone CKDII Creat 1.22-1.51 this admission with eGFR 41-53 Spoke with office of patient's Plant Maintenance Mechanic who provided recent labs: -12/28/24 creat 1.36 with eGFR 47 -02/07/25 creat 1.1 -03/11/25 creat 1.42 Advised patient to avoid nephrotoxic agents as able Recommend follow up with PCP/Protector Plate Attacher Cirrhosis Esophageal varices, portal HTN Follows with Mold Maker Apprentice in [place] Continue coreg and diuretics GERD Continue PPI BID Patient seen in collaboration with Dr. Rodriguez. Please see addendum. Notes For Next Care Provider 50 year old female with significant PMH who presented with globus sensation and difficulty swallowing. Underwent EGD revealing cricopharyngeal hypertension s/p dilation of upper esophageal sphincter. Also diagnosed with new onset diabetes with A1C 11%. Met with tobacco prevention health educator and discharged on daily long acting insulin. Patient will need close follow up with PCP/Endocrine as well as possibly Nephrology for what appears to be chronic CKD and ongoing hyponatremia in setting of hyperglycemia and spironolactone use for cirrhosis. Recommend recheck BMP in one week. Medication Changes From Visit Lantus 35 units daily Diabetic supplies Admission HPI Per Admitting Provider This is a 50 y/o female with cirrhosis with known esophageal varices, prior breast cancer, IRMA, rheumatoid arthritis, psoriatic arthritis, and empty sella syndrome who presents to the ED today with two weeks of a choking sensation. She describes this like "someone's hand on my neck" and notes an associated metallic taste in her mouth. She denies significant dysphagia or odynophagia and reports that she has been able to eat without difficulty. She has been spitting up saliva and mucus during this same time because she feels like it's making her nauseated but again denies difficulty with swallowing her saliva. She also noted several days of vaginal irritation that she describes as "felt raw, burning sensation" but no unusual vaginal discharge. She called her PCP who prescribed her fluconazole 200 mg daily starting yesterday due to concern for potential vaginal and esophageal candidiasis based on her symptoms. She took three 100 mg pills of fluconazole yesterday to try to "catch up" but notes that this caused nausea so didn't take today. Her vaginal irritation has already improved but hasn't noted any change in the choking sensation. She has noted chills and night sweats, has not checked her temperature, but notes she is menopausal. Her bowel pattern is alternating diarrhea and constipation - was supposed to get a scope in June but told to avoid sedation if possible so hasn't had this. She denies melena or hematochezia. She denies changes in urination - no dysuria, hematuria. She notes taking prednisone for several days earlier this month for a back injury, finishing about 2-3 weeks ago. She has a history of cirrhosis with recently diagnosed esophageal varices, which is why she was started on Coreg. She follows with a assistant press operator offset in [place]. She notes recurrent pleural effusions as well, requiring five thoracentesis procedures in the past, that have also been attributed to the cirrhosis. Her knotter hand is also in [place]. She denies hx of prior SC, stroke. Denies prior diagnosis of DM. She has a known sleep apnea but had trouble tolerating the CPAP (can't tolerate the mask). Admission Exam Per Admitting Provider General: Obese woman Eyes: PERRL, conjunctivae normal, not pale, anicteric sclerae, EOM intact bilaterally ENMT: External ear and nose normal, No erythema or plaques noted in part of oropharynx visualized Neck: Normal visual inspection, no tracheal deviation, no swelling/tenderness noted Respiratory: Normal respiratory effort, no respiratory distress, lungs clear to auscultation Cardiovascular: RRR S1 S2 Gastrointestinal (Abdomen): Abdomen is not distended, soft, non-tender to palpation, normal bowel sounds Musculoskeletal: No pedal edema Neurologic: Alert and oriented x 3, No focal weakness, sensation grossly intact Psychiatric: Anxious Discharge Exam General/Psych: WD/WN, sitting in chair, NAD, conversing easily Head: normocephalic, atraumatic Eyes: normal inspection, PERRL, conjunctivae pink ENT: external ear and nose normal, oropharynx normal Neck: normal visual inspection, trachea midline Respiratory: normal respiratory effort, lungs clear to auscultation, no wheeze/rales/rhonchi, no accessory muscle use Cardiovascular: regular rate and rhythm, no murmur/rub/gallop, no JVD Extremities: no cyanosis or clubbing, normal peripheral pulses, no BLE edema Abdomen/GI: normal bowel sounds, soft, nontender Neurologic/MSK: A+Ox3, motor strength 5/5, moves all extremities Skin: no rashes, normal color, warm and dry Updated Medication List Medication Instructions Recorded Confirmed Type carvedilol 3.125 mg tablet 3.125 mg PO DAILY 04/06/25 04/06/25 History ergocalciferol (vitamin D2) 1,250 50,000 unit PO WK 04/06/25 04/06/25 History mcg (50,000 unit) capsule furosemide 40 mg tablet 60 mg PO DAILY 04/06/25 04/06/25 History ixekizumab 80 mg/mL subcutaneous 80 mg subcut MONTHLY 04/06/25 04/06/25 History auto-injector (Taltz Autoinjector) omeprazole 20 mg capsule,delayed 20 mg PO BID 04/06/25 04/06/25 History release spironolactone 100 mg tablet 200 mg PO DAILY 04/06/25 04/06/25 History blood sugar diagnostic (FreeStyle #100 ea 04/09/25 Rx Lite Strips) blood-glucose meter (FreeStyle #1 ea 04/09/25 Rx Lite Meter kit) insulin glargine 100 unit/mL (3 35 unit (0.35 mL) subcut QAM #15 mL 04/09/25 Rx mL) subcutaneous pen (Lantus Solostar U-100 Insulin) lancets 28 gauge (FreeStyle #100 ea 04/09/25 Rx Lancets) pen needle, diabetic 32 gauge x #50 ea 04/09/25 Rx 5/32" (Pen Needle) Hospital Stay Data Consultations 04/06/25 16:27 ED Decision to Admit Stat 04/06/25 17:09 Consult Gastroenterology Routine Consult Otolaryngology (Head and Neck) Routine 04/06/25 17:31 Consult Behavioral Health Liaison Routine Procedures Performed Operation Date: 04/08/25 16:55 Actual Procedures p EGD Dilatation - Satish Garcia MD Diagnostic Imagining Performed Chest CTA 04/06/25 13:44 EXAM: CT Angiography Chest With Intravenous Contrast INDICATION: Lump in throat. Dyspnea. Vomiting. TECHNIQUE: Axial computed tomographic angiography images of the chest with intravenous contrast. Sagittal and coronal reformatted images were created and reviewed. This CT exam was performed using one or more of the following dose reduction techniques: automated exposure control, adjustment of the mA and/or kV according to patient size, and/or use of iterative reconstruction technique. MIP reconstructed images were created and reviewed. CONTRAST: 112 ml of Optiray 320 was administered intravenously. COMPARISON: No relevant prior studies available. FINDINGS: Pulmonary arteries: Pression no pulmonary embolus or aortic abnormality. Aorta: See above. Lungs and pleural spaces: No abnormality noted. No mass. No consolidation. No significant effusion. No pneumothorax. Heart: No abnormality noted. No cardiomegaly. No significant pericardial effusion. No evidence of RV dysfunction. Bones/joints: Degenerative changes noted throughout the spine. No acute osseous abnormality seen. Soft tissues: No abnormality noted. Lymph nodes: No abnormality noted. No enlarged lymph nodes. Liver: Visualized portion of the liver is cirrhotic. The spleen is probably enlarged but not completely imaged. The pancreas is not assessed. IMPRESSION: 1. No pulmonary embolus or pulmonary infiltrate. 2. Cirrhosis and probable splenomegaly. The pancreas is not evaluated and may be seen partially related to volume averaging on the lowermost image. ACT 112: N/A Electronically signed by Nevaeh Aponte 04-06-2025 2:[address] 04/06/25 13:44 EXAM: CT Neck With Intravenous Contrast INDICATION: Lump in throat. Vomiting. TECHNIQUE: Axial computed tomography images of the neck with intravenous contrast. Sagittal and coronal reformatted images were created and reviewed. This CT exam was performed using one or more of the following dose reduction techniques: automated exposure control, adjustment of the mA and/or kV according to patient size, and/or use of iterative reconstruction technique. CONTRAST: 112 ml of Optiray 320 was administered intravenously. COMPARISON: No relevant prior studies available. FINDINGS: Oropharynx: No abnormality noted. No significant tonsillar enlargement. No peritonsillar abscess. Hypopharynx: No abnormality noted. Larynx: No abnormality noted. Normal epiglottis. Trachea: No abnormality noted. Retropharyngeal space: No abnormality noted. Submandibular/parotid glands: No abnormality noted. Glands are normal in size. Thyroid: No abnormality noted. Bones/joints: No acute changes. Soft tissues: No significant abnormality noted. Vasculature: No acute abnormality noted. Lymph nodes: No abnormality noted. No lymphadenopathy. Sinuses: Minimal chronic mucosal thickening floor of the right maxillary sinus. Lung apices: No significant abnormality noted. IMPRESSION: No acute findings in the neck. ACT 112: N/A Electronically signed by Nevaeh Aponte 04-06-2025 3:15 PM Pending Results Patient Have Any Pending Studies at Discharge: No Discharge Instructions Given to Patient (Per Discharging Provider) You presented to the hospital with a choking sensation and difficulty sw allowing. You were evaluated by ENT who found no clear source. You were then evaluated by GI who thought you might have esophageal candidiasis, or a yeast infection in your esophagus, so you were given fluconazole. You underwent an EGD yesterday with Dr. Garcia who discovered a medium sized hiatal hernia, which is where part of the stomach pushes though an opening in the diaphragm, as well as tightness of your upper esophageal sphincter which was dilated and relieved the choking sensation you were feeling. This tightness can be caused by chronic acid reflux and regurgitation so it will be very important that you take omeprazole twice daily for 3 months, elevate the head of head 4 inches, and avoid food intake 3 hours prior to going to bed. There were no signs of candidiasis so we discontinued your fluconazole. If you develop vaginal yeast infection symptoms, we advise a vaginal application such as monistat. When you came to the hospital, your blood sugar was very elevated and you had a hemoglobin A1C test that confirmed a diagnosis of diabetes mellitus. You were given insulin to bring your blood sugar down and met with a tobacco prevention health educator who provided education to you. You will be discharged with supplies to check your blood sugar at home three times per day and give yourself long acting insulin once daily. You should follow up with your PCP or an Press Set Up Person for further management of this outpatient. Your labs showed decreased kidney function while you were in the hospital. We reviewed your prior labs and determined that this is a chronic problem, and is likely related to your new diagnosis of diabetes and use of diuretics for cirrhosis. You should try to avoid drugs that are damaging to the kidneys, especially NSAIDs like aspirin, ibuprofen and naproxen. You should stay well hydrated. You should follow up with your PCP or a Protector Plate Attacher (kidney doctor) for further management of this outpatient. Your labs also showed low sodium levels. This is likely due to your high blood sugar as well as your spironolactone. You should have your labs checked (basic metabolic panel) in about a week and review with your PCP to make sure your sodium level is okay. Your PCP may need to adjust your spironolactone dosing depending on what your bloodwork shows. MEDICATION CHANGES: Lantus (long acting insulin) 35 units once daily - inject into subcutaneous tissue (belly, arms) and rotate injection sites Continue omeprazole 20mg twice daily SUMMARY OF TEST RESULTS: See above PENDING TEST RESULTS: None RECOMMENDATIONS FOR FOLLOW-UP: Please follow up with your PCP after hospitalization on 04/16/2025 at 10:45am Consider scheduling appointments or requesting referrals for Press Set Up Person (diabetes doctor) and Protector Plate Attacher (kidney doctor) OTHER INSTRUCTIONS: Seek medical attention if you have: * temperature above 101 * chest pain or trouble breathing * abdominal pain, nausea, vomiting * diarrhea, dark stools or bloody stools * any unanswered questions or concerns Call 911 if symptoms are severe. It has been a pleasure taking care of you. Please take care of yourself. If you have any questions regarding your recent hospitalization please contact [facility] and request Raymond Thomas @ [phone]. Total Time Total Time Spent Total Time Spent (In Minutes): I spent a total of 35 minutes coordinating, documenting and providing care for this patient excluding time spent in the performance of separately billed services or time spent by another provider/QHP. Supervising Physician Co-Signing Physician Notes Patient seen and examined at bedside. She reports that she is feeling much better today. She is able to eat without any difficulty. I discussed medications regarding diabetes, dietary and lifestyle changes. Patient verbalized understanding. Patient to follow-up with her primary care doctor. She is prescribed Protonix for reflux and insulin glargine for management of diabetes. I have reviewed the advanced practitioner's documentation, and I agree with, and take responsibility for the plan of care I spent a total of 25 minutes coordinating, documenting, and providing care for this patient excluding time spent in the performance of separately billed services. All of the aforementioned completed while collaborating with the assigned advanced practitioner for a full treatment plan
[2025-04-09] MEDS ORDERED: LANTUS PER UNIT CHARGE SC SCH (21:00)
== END 2025-04-09 15:22 | disposition home or self-care (01) | DRG 368 ==
LOC: ED 13:23 → EDINP 17:39 → SUATTDRO 17:39 → 2N 20:16